=== PATIENT | female | born 1950 | race American Indian/Alaskan Native ===

== ENCOUNTER 2016-12-05 16:59 | Inpatient (IN) | payer MEDICARE, OTHER ==
[~2016-12-05] VITALS: Ht 170.2 cm; Wt 57.6 kg
[~2016-12-05 16:59] MED LIST: ASPIRIN81 MG ORAL; CLONIDINE1 EAC1 TD; MACROBID100 MG ORAL; NORCO 5-325 TA1 EACH ORAL; TYLENOL EXTRA500 MG ORAL
[2016-12-05 18:00] VITALS: BP 169/97
[2016-12-05 18:34] LABS: BASOPHILS % (AUTO) 3.8 % (0.0-2.0); EOSINOPHILS % (AUTO) 0.3 % (0.0-3.0); LYMPHOCYTES % (AUTO) 36.7 % (20.0-45.0); MEAN CORPUSCULAR HEMOGLOBIN 25.8 PG (27.0-31.0); MEAN CORPUSCULAR HGB CONC 31.2 G/DL (32.0-36.0); MEAN CORPUSCULAR VOLUME 83 FL (80-99); MEAN PLATELET VOLUME 7.6 FL (6.5-10.1); MONOCYTES % (AUTO) 10.5 % (1.0-10.0); NEUTROPHILS % (AUTO) 48.6 % (45.0-75.0); PLATELET COUNT 245 K/UL (150-450); RED BLOOD COUNT 5.81 M/UL (4.20-5.40); WHITE BLOOD COUNT 7.9 K/UL (4.8-10.8)
[2016-12-05] MEDS ORDERED: Miralax 17gm pkt ORAL PRN (18:45)
[2016-12-05 18:52] LABS: PROTHROMBIN TIME 10.2 SEC (9.30-11.50)
[2016-12-05 18:56] LABS: ALANINE AMINOTRANSFERASE 16 U/L (3-33); ANION GAP 13 (5-15); ASPARTATE AMINO TRANSFERASE 18 U/L (5-40); CALCIUM 9.4 mg/dL (8.6-10.2); CARBON DIOXIDE 29 mEQ/L (20-30); CHLORIDE 103 mEQ/L (98-107); CHOLESTEROL 166 mg/dL (< 200); CHOLESTEROL/HDL RATIO 2.7 (3.3-4.4); GLOMERULAR FILTRATION RATE > 60 mL/min (>60); HEMOLYSIS 3; LDL CHOLESTEROL CALC 77 mg/dL (60-99); POTASSIUM 3.8 mEQ/L (3.4-4.9); SODIUM 145 mEQ/L (135-145); TOTAL PROTEIN 7.1 g/dL (6.6-8.7); TROPONIN I < 0.30 ng/mL (<=0.30)
[2016-12-05 19:06] VITALS: BP 166/74
--- NOTE | 2016-12-05 19:44 | Emergency Room Report ---
History of Present Illness General Chief Complaint: General Complaint Source: Patient Present Illness HPI 66-year-old female presents ED complaining of slurred speech and left-sided weakness x2 days. Patient has history of hypertension and CVA. Patient did not come in sooner because she thought it would go away. Denies fevers or chills. Denies chest pain. Denies shortness of breath. Denies headache. No other aggravating or relieving factors. Denies any other associated symptoms Allergies: Coded Allergies: TRAMADOL (Unverified Allergy, Unknown, 08/25/14) Patient History Past Medical History: HTN, CVA/TIA, other - crohns Past Surgical History: none Pertinent Family History: none Social History: Denies: smoking, alcohol use, drug use Now: No Immunizations: UTD Reviewed Nursing Documentation: PMH: Agreed, PSxH: Agreed Nursing Documentation-PMH Hx Cardiac Problems: Yes Hx Hypertension: Yes Hx Cancer: Yes Hx Gastrointestinal Problems: Yes - CHRONS DISEASE Hx Neurological Problems: Yes Hx Cerebrovascular Accident: Yes Hx Dizziness: Yes Review of Systems All Other Systems: negative except mentioned in HPI Physical Exam Vital Signs Date Time Temp Pulse Resp B/P (MAP) Pulse Ox O2 Delivery O2 Flow Rate FiO2 12/05/16 17:06 97.9 88 16 169/97 99 Room Air Sp02 EP Interpretation: reviewed, normal General Appearance: no apparent distress, alert, GCS 15, non-toxic Head: normocephalic, atraumatic Eyes: bilateral eye normal inspection, bilateral eye PERRL ENT: hearing grossly normal, normal pharynx, no angioedema, normal voice Neck: full range of motion, supple/symm/no masses Respiratory: chest non-tender, lungs clear, normal breath sounds, speaking full sentences Cardiovascular #1: regular rate, rhythm, no edema Cardiovascular #2: 2+ carotid (R), 2+ carotid (L), 2+ radial (R), 2+ radial (L) , 2+ dorsalis pedis (R), 2+ dorsalis pedis (L) Gastrointestinal: normal bowel sounds, non tender, soft, non-distended, no guarding, no rebound Rectal: deferred Genitourinary: normal inspection, no CVA tenderness Musculoskeletal: back normal, gait/station normal, normal range of motion, non- tender Neurologic: alert, oriented x3, responsive, sensory intact, speech normal, facial droop, motor weakness, sensory deficit Psychiatric: judgement/insight normal, memory normal, mood/affect normal, no suicidal/homicidal ideation Reflexes: 3+ bicep (R), 3+ bicep (L), 3+ tricep (R), 3+ tricep (L), 3+ knee (R) , 3+ knee (L) Skin: normal color, no rash, warm/dry, well hydrated Lymphatic: no adenopathy Medical Decision Making Diagnostic Impression: Primary Impression: CVA (cerebral vascular accident) Qualified Codes: I63.9 - Cerebral infarction, unspecified ER Course Hospital Course 66-year-old female presents to ED complaining of left-sided body weakness, slurred speech x2 days Differential diagnoses include: [place]/unstable angina, SVT/Vtach/AFib, CVA/TIA Clinical course Patient placed on stretcher. 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 After initial history and physical I ordered labs, EKG, chest x-ray, and CT head labs reviewed- electrolytes ok, troponins negative, no leukocytosis, Hb/Hct stable EKG - NSR, no acute changes interpreted by me CT brain - no acute process noted Given aspirin in ED. patient symptoms started 2 days ago; not a candidate for thrombolytic therapy Case discussed with Dr. Aguilar and he agreed to accept the patient to his service for further care and support I. I feel this is a highly complex case requiring extensive working including EKG/Rhythm strip, Xray/CT/US, Blood/urine lab work, repeat exams while in ED, and administration of strong opiates/narcotics for pain control, admission to hospital or close patient follow up. Diagnosis - CVA/TIA admitted to telemetry in serious condition Labs Test 12/05/16 18:00 12/05/16 18:17 White Blood Count 7.9 K/UL (4.8-10.8) Red Blood Count 5.81 M/UL (4.20-5.40) Hemoglobin 15.0 G/DL (12.0-16.0) Hematocrit 48.0 % (37.0-47.0) Mean Corpuscular Volume 83 FL (80-99) Mean Corpuscular Hemoglobin 25.8 PG (27.0-31.0) Mean Corpuscular Hemoglobin Concent 31.2 G/DL (32.0-36.0) Red Cell Distribution Width 14.0 % (11.6-14.8) Platelet Count 245 K/UL (150-450) Mean Platelet Volume 7.6 FL (6.5-10.1) Neutrophils (%) (Auto) 48.6 % (45.0-75.0) Lymphocytes (%) (Auto) 36.7 % (20.0-45.0) Monocytes (%) (Auto) 10.5 % (1.0-10.0) Eosinophils (%) (Auto) 0.3 % (0.0-3.0) Basophils (%) (Auto) 3.8 % (0.0-2.0) Prothrombin Time 10.2 SEC (9.30-11.50) Prothromb Time International Ratio 1.0 (0.9-1.1) Activated Partial Thromboplast Time 25 SEC (23-33) Sodium Level 145 mEQ/L (135-145) Potassium Level 3.8 mEQ/L (3.4-4.9) Chloride Level 103 mEQ/L (98-107) Carbon Dioxide Level 29 mEQ/L (20-30) Anion Gap 13 (5-15) Blood Urea Nitrogen 20 mg/dL (7-23) Creatinine 1.0 mg/dL (0.5-0.9) Estimat Glomerular Filtration Rate > 60 mL/min (>60) Glucose Level 94 mg/dL (74-106) Calcium Level 9.4 mg/dL (8.6-10.2) Total Bilirubin 0.3 mg/dL (0.0-1.2) Aspartate Amino Transf (AST/SGOT) 18 U/L (5-40) Alanine Aminotransferase (ALT/SGPT) 16 U/L (3-33) Alkaline Phosphatase 123 U/L (35-104) Troponin I < 0.30 ng/mL (<=0.30) Total Protein 7.1 g/dL (6.6-8.7) Albumin 3.7 g/dL (3.5-5.2) Globulin 3.4 g/dL Albumin/Globulin Ratio 1.0 (1.0-2.7) Triglycerides Level 133 mg/dL (< 150) Cholesterol Level 166 mg/dL (< 200) LDL Cholesterol 77 mg/dL (60-99) HDL Cholesterol 62 mg/dL (> 60) Cholesterol/HDL Ratio 2.7 (3.3-4.4) EKG Diagnostic Results Rate: normal Rhythm: NSR ST Segments: no acute changes ASA given to the pt in ED: Yes Rhythm Strip Diag. Results EP Interpretation: yes Rhythm: NSR, no PVC's, no ectopy CT/MRI/US Diagnostic Results CT/MRI/US Diagnostic Results : Imaging Test Ordered: CT Head Impression no acute process. chronic infarcts noted Last Vital Signs Date Time Temp Pulse Resp B/P (MAP) Pulse Ox O2 Delivery O2 Flow Rate FiO2 12/05/16 19:06 25 25 166/74 98 Room Air 12/05/16 18:00 97.9 Status: improved Disposition: ADMITTED INPATIENT Condition: Serious Referrals: NOT CHOSEN KALPESH/,REFERRING (PCP) AMANDA REED M.D. Dec 05, 2016 19:44
[2016-12-05 21:00] VITALS: BP 158/76
[2016-12-05] MEDS ORDERED: Milk of Magnesia 30ml Ud ORAL PRN (21:00)
[2016-12-05 21:29] VITALS: BP 165/89
[2016-12-05 22:00] VITALS: BP 154/54
[2016-12-05] MEDS: Docusate 100mg cap ORAL SCH (22:16)
[2016-12-05] MEDS: D5 1/2NS 1,000 ML IV SCH (22:16)
[2016-12-05] MEDS: Heparin 5000 units/ml inj SUBQ SCH (22:18)
[2016-12-05] MEDS ORDERED: oxyCODONE HCL/Acetaminophen 5/325mg ORAL PRN (23:15)
[2016-12-06] VITALS (7 sets, daily range): BP systolic 134–176; BP diastolic 78–106
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
[2016-12-06 08:07] LABS: BASOPHILS % (AUTO) 2.7 % (0.0-2.0); EOSINOPHILS % (AUTO) 1.4 % (0.0-3.0); LYMPHOCYTES % (AUTO) 41.7 % (20.0-45.0); MEAN CORPUSCULAR HEMOGLOBIN 24.4 PG (27.0-31.0); MEAN CORPUSCULAR HGB CONC 29.9 G/DL (32.0-36.0); MEAN CORPUSCULAR VOLUME 82 FL (80-99); MEAN PLATELET VOLUME 8.8 FL (6.5-10.1); MONOCYTES % (AUTO) 18.1 % (1.0-10.0); NEUTROPHILS % (AUTO) 36.2 % (45.0-75.0); PLATELET COUNT 272 K/UL (150-450); RED BLOOD COUNT 5.82 M/UL (4.20-5.40); RED CELL DISTRIBUTION WIDTH 13.2 % (11.6-14.8); WHITE BLOOD COUNT 6.7 K/UL (4.8-10.8)
[2016-12-06 08:25] LABS: ANION GAP 12 (5-15); CALCIUM 8.8 mg/dL (8.6-10.2); CARBON DIOXIDE 26 mEQ/L (20-30); CHLORIDE 105 mEQ/L (98-107); CREATININE 0.9 mg/dL (0.5-0.9); GLOMERULAR FILTRATION RATE > 60 mL/min (>60); HEMOLYSIS 3; MAGNESIUM 1.8 mg/dL (1.7-2.5); SODIUM 143 mEQ/L (135-145)
[2016-12-06 08:32] LABS: THYROID STIMULATING HORMONE 0.827 uIU/mL (0.300-4.500)
--- NOTE | 2016-12-06 08:38 | Diagnostic Imaging Report ---
Indication: Altered mental status Technique: spiral acquisitions obtained through the brain. Angled axial and coronal 5 x 5 mm slices were reconstructed. No IV contrast utilized. Radiation dose was minimized using automated exposure control Total dose length product 1410 mGycm. CTDIvol(s) 70 mGy Comparison: none FINDINGS: No acute hemorrhage or edema. No mass effect or midline shift. There is age-related enlargement of the ventricles and extra axial CSF spaces. There is periventricular deep white matter ischemic change. Normal sterling-white differentiation. Visualized orbits are unremarkable. There is minimal ethmoid sinus disease on the right. The mastoids are clear. Intact calvarium. IMPRESSION: Chronic and age-related changes. Negative for acute intracranial bleed or mass effect This agrees with the preliminary interpretation provided overnight by [facility] teleradiology service. The CT scanner at [facility] is accredited by the [employer] and the scans are performed using protocols designed to limit radiation exposure to as low as reasonably achievable to attain images of sufficient resolution adequate for diagnostic evaluation
[2016-12-06] MEDS: Aspirin EC 325mg tab ORAL SCH (09:01)
[2016-12-06 09:02] LABS: HEMOGLOBIN A1C 5.3 % (< 6.0)
[2016-12-06] MEDS: Docusate 100mg cap ORAL SCH ×2 (09:03→21:03)
[2016-12-06] MEDS: Heparin 5000 units/ml inj SUBQ SCH ×2 (09:05→21:04)
[2016-12-06] MEDS: D5 1/2NS 1,000 ML IV SCH (10:06)
--- NOTE | 2016-12-06 10:06 | Diagnostic Imaging Report ---
Indication: Chest pain Technique: One view of the chest Comparison: 01/22/2014 Findings: Less optimal inspiration currently. There are atelectatic changes at the right lung base or increased from the prior exam. Left basilar linear opacities are similar, may reflect recurrent atelectatic changes or scarring. The lungs and pleural spaces are otherwise clear. The heart is upper limits of normal in size. There is tortuous and calcified. Impression: Bilateral basilar atelectasis and/or scarring. No acute process otherwise
--- NOTE | 2016-12-06 10:21 | Diagnostic Imaging Report ---
Indication: 66-year-old female patient with left-sided weakness and slurred speech Technique: sagittal T1 fast spin echo, axial T1 FLAIR, axial T2 FLAIR, axial T2 FS PROPELLER, axial T2* GRE, axial diffusion weighted images. ADC and exponential ADC maps generated Comparison: Brain CT earlier the same day Findings:Exam is limited due to significant motion artifact on several sequences. Patient was altered and unable hold still No abnormal areas of restricted diffusion to suggest acute infarction. No acute hemorrhage or edema. No mass effect nor midline shift. There is age-related enlargement of ventricles and extra-axial CSF spaces. There is an old lacunar infarct in the left basal ganglia. There is mild periventricular deep white matter chronic ischemic change noted. There is an old lacunar infarct in the right brachium pontis.. Visualized orbits and sinuses are unremarkable. The vascular flow voids are preserved. Impression: Mild chronic and age-related changes Negative for acute intracranial bleed, infarct, or mass effect
--- NOTE | 2016-12-06 11:34 | Neurology Progress Note ---
Objective Physical Exam Last Vital Signs Date Time Temp Pulse Resp B/P (MAP) Pulse Ox O2 Delivery O2 Flow Rate FiO2 12/06/16 09:04 169/99 12/06/16 08:00 98.1 68 20 94 Room Air Laboratory Tests Test 12/05/16 18:00 12/05/16 18:17 12/06/16 06:45 White Blood Count 7.9 K/UL (4.8-10.8) 6.7 K/UL (4.8-10.8) Red Blood Count 5.81 M/UL (4.20-5.40) H 5.82 M/UL (4.20-5.40) H Hemoglobin 15.0 G/DL (12.0-16.0) 14.2 G/DL (12.0-16.0) Hematocrit 48.0 % (37.0-47.0) H 47.6 % (37.0-47.0) H Mean Corpuscular Volume 83 FL (80-99) 82 FL (80-99) Mean Corpuscular Hemoglobin 25.8 PG (27.0-31.0) L 24.4 PG (27.0-31.0) L Mean Corpuscular Hemoglobin Concent 31.2 G/DL (32.0-36.0) L 29.9 G/DL (32.0-36.0) L Red Cell Distribution Width 14.0 % (11.6-14.8) 13.2 % (11.6-14.8) Platelet Count 245 K/UL (150-450) 272 K/UL (150-450) Mean Platelet Volume 7.6 FL (6.5-10.1) 8.8 FL (6.5-10.1) Neutrophils (%) (Auto) 48.6 % (45.0-75.0) 36.2 % (45.0-75.0) L Lymphocytes (%) (Auto) 36.7 % (20.0-45.0) 41.7 % (20.0-45.0) Monocytes (%) (Auto) 10.5 % (1.0-10.0) H 18.1 % (1.0-10.0) H Eosinophils (%) (Auto) 0.3 % (0.0-3.0) 1.4 % (0.0-3.0) Basophils (%) (Auto) 3.8 % (0.0-2.0) H 2.7 % (0.0-2.0) H Prothrombin Time 10.2 SEC (9.30-11.50) Prothromb Time International Ratio 1.0 (0.9-1.1) Activated Partial Thromboplast Time 25 SEC (23-33) Sodium Level 145 mEQ/L (135-145) 143 mEQ/L (135-145) Potassium Level 3.8 mEQ/L (3.4-4.9) 4.0 mEQ/L (3.4-4.9) Chloride Level 103 mEQ/L (98-107) 105 mEQ/L (98-107) Carbon Dioxide Level 29 mEQ/L (20-30) 26 mEQ/L (20-30) Anion Gap 13 (5-15) 12 (5-15) Blood Urea Nitrogen 20 mg/dL (7-23) 15 mg/dL (7-23) Creatinine 1.0 mg/dL (0.5-0.9) H 0.9 mg/dL (0.5-0.9) Estimat Glomerular Filtration Rate > 60 mL/min (>60) > 60 mL/min (>60) Glucose Level 94 mg/dL (74-106) 88 mg/dL (74-106) Calcium Level 9.4 mg/dL (8.6-10.2) 8.8 mg/dL (8.6-10.2) Total Bilirubin 0.3 mg/dL (0.0-1.2) Aspartate Amino Transf (AST/SGOT) 18 U/L (5-40) Alanine Aminotransferase (ALT/SGPT) 16 U/L (3-33) Alkaline Phosphatase 123 U/L (35-104) H Troponin I < 0.30 ng/mL (<=0.30) Total Protein 7.1 g/dL (6.6-8.7) Albumin 3.7 g/dL (3.5-5.2) Globulin 3.4 g/dL Albumin/Globulin Ratio 1.0 (1.0-2.7) Triglycerides Level 133 mg/dL (< 150) Cholesterol Level 166 mg/dL (< 200) LDL Cholesterol 77 mg/dL (60-99) HDL Cholesterol 62 mg/dL (> 60) H Cholesterol/HDL Ratio 2.7 (3.3-4.4) L Hemoglobin A1c 5.3 % (< 6.0) Magnesium Level 1.8 mg/dL (1.7-2.5) Vitamin B12 Level 367 pg/mL (211-946) Vitamin D 25-Hydroxy Pending 25-Hydroxy Vitamin D2 Pending 25-Hydroxy Vitamin D3 Pending Folate Pending Thyroid Stimulating Hormone (TSH) 0.827 uIU/mL (0.300-4.500) Impression/Recommendations Problems: (1) left radial nerve pulsy,wrist drop (2) old lacunar strokes Status: stable Recommendations #[id number] SHABBIR MOORE Dec 06, 2016 11:34
--- NOTE | 2016-12-06 12:52 | Cardiology Report ---
APPROVED REPORT EKG Measurement Heart [id number] Normal sinus rhythm Possible Left atrial enlargement Left ventricular hypertrophy Nonspecific T wave abnormality Abnormal ECG
--- NOTE | 2016-12-06 13:25 | Cardiology Report ---
APPROVED REPORT EXAM: Two-dimensional and M-mode echocardiogram with Doppler and color Doppler. INDICATION CVA/TIA M-Mode DIMENSIONS IVSd1.8 (0.7-1.1cm)Left Atrium (MM)3.1 (1.6-4.0cm) LVDd4.0 (3.5-5.6cm)Aortic Root3.7 (2.0-3.7cm) PWd1.9 (0.7-1.1cm)Aortic Cusp Exc.2.0 (1.5-2.0cm) LVDs3.5 (2.5-4.0cm) PWs1.9 cm Normal left ventricular chamber size. Mild global left ventricular hypokinesis. Left ventricular ejection fraction estimated to be 40-45 %. Mild left ventricular hypertrophy by 2-D. Anterior Echo-free space, may be due to pericardial fat or effusion. All other cardiac chamber sizes are within normal limits. Focal aortic valve sclerosis with adequate cusp excursion. Thickened mitral valve leaflets with normal excursion. Mitral annulus and aortic root calcification. Pulmonic valve not well visualized. Normal tricuspid valve structure. IVC at normal size with physiologic collapse. A color flow and spectral Doppler study was performed and revealed: Trace to mild mitral regurgitation. Mitral diastolic velocities suggest reduced left ventricular relaxation c/w mild LV diastolic dysfunction (Grade I). Mild tricuspid regurgitation. Tricuspid systolic velocities suggests peak right ventricular systolic pressure of 42 mmHg, consistent with mild pulmonary hypertension.
[2016-12-06] MEDS ORDERED: D5 1/2NS 1000ml IV ONE (14:30)
[2016-12-06] MEDS ORDERED: HYDROmorphone 1mg/ml Carpuject IVP PRN (15:15)
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
[2016-12-07 03:57] VITALS: BP 137/80
[2016-12-07 08:00] VITALS: BP 167/101
[2016-12-07] MEDS: Docusate 100mg cap ORAL SCH ×2 (08:53→22:00)
[2016-12-07] MEDS: Aspirin EC 325mg tab ORAL SCH (08:54)
[2016-12-07] MEDS: Heparin 5000 units/ml inj SUBQ SCH ×2 (08:57→22:02)
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
[2016-12-07 12:00] VITALS: BP 115/74
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
--- NOTE | 2016-12-07 14:15 | Cardiac Electrophysiology PN ---
Subjective Subjective [id number] Objective Last 24 Hour Vital Signs Date Time Temp Pulse Resp B/P (MAP) Pulse Ox O2 Delivery O2 Flow Rate FiO2 12/07/16 12:00 97.2 60 21 115/74 97 Room Air 12/07/16 08:58 167/101 12/07/16 08:54 72 167/101 12/07/16 08:00 97.8 72 20 167/101 97 Room Air 12/07/16 08:00 82 12/07/16 04:00 88 12/07/16 03:57 98.5 79 17 137/80 99 Room Air 12/07/16 00:00 74 12/06/16 23:53 98.8 78 18 145/80 95 Room Air 12/06/16 20:07 98.3 97 19 134/89 98 Room Air 12/06/16 20:00 88 12/06/16 16:03 152/103 12/06/16 16:00 77 12/06/16 16:00 97.3 69 22 158/93 97 Room Air EDWIGE DELONG Dec 07, 2016 14:15
[2016-12-07 16:00] VITALS: BP 107/58
[2016-12-07 20:00] VITALS: BP 136/72
--- NOTE | 2016-12-07 20:24 | General Progress Note ---
Assessment/Plan Problem List: (1) Bradycardia ICD Codes: R00.1 - Bradycardia, unspecified SNOMED: 48432229 (2) H/O: CVA (cerebrovascular accident) ICD Codes: Z86.73 - Personal history of transient ischemic attack (TIA), and cerebral infarction without residual deficits SNOMED: 372165675 (3) Dysarthria ICD Codes: R47.1 - Dysarthria and anarthria SNOMED: 6671619 (4) HTN (hypertension) ICD Codes: I10 - Essential (primary) hypertension SNOMED: 80382200 (5) Left hand weakness ICD Codes: R29.898 - Other symptoms and signs involving the musculoskeletal system SNOMED: 713767165 Status: stable Assessment/Plan Neurology consulted CT head reviewed and no acute abnormality F/u MRI brain--no acute abnormality F/u TTE--normal EF F/u carotid duplex Cardiology consulted given bradycardia Amlodipine 5mg BID Hold clonidine PT/OT/ST eval Pain control, supportive care, bowel regimen CM consulted for SNF placement DVT Prophylaxis: SCD, HSQ Code Status: Full Hospital Classification Declaration: Based on this initial evaluation, and depending on the patient's clinical course, I anticipate that this patient will require hospitalization for 1-2 days for possible CVA and close respiratory/ hemodynamic monitoring. Disposition: Once the patient is stable to leave the hospital, I anticipate the patient will likely be discharged to the following environment: home with vs SNF I spent 40 minutes on this patient's case, and 22 minutes were dedicated to counseling and/or care coordination. Discussed with patient/family, nursing staff, SW/CM, neurology regarding clinical status, treatment course, and disposition planning. Time of note may not reflect time of encounter. Subjective Date patient seen: Dec 07, 2016 Time patient seen: 14:00 Constitutional: Reports: no symptoms HEENT: Reports: no symptoms Cardiovascular: Reports: no symptoms Respiratory: Reports: no symptoms Gastrointestinal/Abdominal: Reports: no symptoms Genitourinary: Reports: no symptoms Neurologic/Psychiatric: Reports: weakness Endocrine: Reports: no symptoms Hematologic/Lymphatic: Reports: no symptoms Allergies: Coded Allergies: IBUPROFEN (Verified Allergy, Unknown, 12/05/16) TRAMADOL (Unverified Allergy, Unknown, 08/25/14) All Systems: reviewed and negative except above Subjective HR dropped to 30s while asleep. Pt otherwise asymptomatic BPs still running high Pt cont to be more awake, alert. C/o L hand weakness. X-rays neg. Working w/ PT/ OT Objective Last 24 Hour Vital Signs Date Time Temp Pulse Resp B/P (MAP) Pulse Ox O2 Delivery O2 Flow Rate FiO2 12/07/16 16:00 67 12/07/16 16:00 97.9 68 21 107/58 95 Room Air 12/07/16 12:00 41 12/07/16 12:00 97.2 60 21 115/74 97 Room Air 12/07/16 08:58 167/101 12/07/16 08:54 72 167/101 12/07/16 08:00 97.8 72 20 167/101 97 Room Air 12/07/16 08:00 82 12/07/16 04:00 88 12/07/16 03:57 98.5 79 17 137/80 99 Room Air 12/07/16 00:00 74 12/06/16 23:53 98.8 78 18 145/80 95 Room Air Intake and Output 12/07/16 12/08/16 19:00 07:00 Intake Total 500 ml Balance 500 ml Intake Oral 500 ml # Voids 1 Height (Feet): 5 Height (Inches): 7.00 Weight (Pounds): 127 Objective General Appearance: no apparent distress, alert, GCS 15, non-toxic Head: normocephalic, atraumatic Eyes: bilateral eye normal inspection, bilateral eye PERRL ENT: hearing grossly normal, normal pharynx, no angioedema, normal voice Neck: full range of motion, supple/symm/no masses Respiratory: chest non-tender, lungs clear, normal breath sounds, speaking full sentences Cardiovascular #1: regular rate, rhythm, no edema Cardiovascular #2: 2+ carotid (R), 2+ carotid (L), 2+ radial (R), 2+ radial (L) , 2+ dorsalis pedis (R), 2+ dorsalis pedis (L) Gastrointestinal: normal bowel sounds, non tender, soft, non-distended, no guarding, no rebound Rectal: deferred Genitourinary: normal inspection, no CVA tenderness Musculoskeletal: back normal, gait/station normal, normal range of motion, non- tender Neurologic: alert, oriented x3, responsive, sensory intact, speech normal, facial droop, motor weakness, sensory deficit - pt does not participate fully with neuro exam so difficult to assess extent of weakness Psychiatric: judgement/insight normal, memory normal, mood/affect normal, no suicidal/homicidal ideation Reflexes: 3+ bicep (R), 3+ bicep (L), 3+ tricep (R), 3+ tricep (L), 3+ knee (R) , 3+ knee (L) Skin: normal color, no rash, warm/dry, well hydrated Lymphatic: no adenopathy General Appearance: no apparent distress, alert, GCS 15, non-toxic Head: normocephalic, atraumatic Eyes: bilateral eye normal inspection, bilateral eye PERRL ENT: hearing grossly normal, normal pharynx, no angioedema, normal voice Neck: full range of motion, supple/symm/no masses Respiratory: chest non-tender, lungs clear, normal breath sounds, speaking full sentences Cardiovascular #1: regular rate, rhythm, no edema Cardiovascular #2: 2+ carotid (R), 2+ carotid (L), 2+ radial (R), 2+ radial (L) , 2+ dorsalis pedis (R), 2+ dorsalis pedis (L) Gastrointestinal: normal bowel sounds, non tender, soft, non-distended, no guarding, no rebound Rectal: deferred Genitourinary: normal inspection, no CVA tenderness Musculoskeletal: back normal, gait/station normal, normal range of motion, non- tender Neurologic: alert, oriented x3, responsive, sensory intact, speech normal, facial droop, motor weakness, sensory deficit - pt does not participate fully with neuro exam so difficult to assess extent of weakness Psychiatric: judgement/insight normal, memory normal, mood/affect normal, no suicidal/homicidal ideation Reflexes: 3+ bicep (R), 3+ bicep (L), 3+ tricep (R), 3+ tricep (L), 3+ knee (R) , 3+ knee (L) Skin: normal color, no rash, warm/dry, well hydrated Lymphatic: no adenopathy Aldair Kamara M.D. Dec 07, 2016 20:24
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
[2016-12-08] VITALS: BP 102/56
[2016-12-08 04:00] VITALS: BP 120/80
[2016-12-08] MEDS ORDERED: LISINOPRIL10 MG ORAL (07:44)
[2016-12-08] MEDS ORDERED: COLACE100 MG ORAL (07:44)
[2016-12-08] MEDS ORDERED: NORVASC5 MG ORAL (07:44)
--- NOTE | 2016-12-08 07:45 | Discharge Instructions ---
Discharge Instructions Discharge Instructions Follow up with: Primary care physician in 1-2 weeks. Repeat BMP in 2-3 days Call MD/Return to Hospital if: fevers, chills, chest pain, SOB> Diet: cardiac 2 GM Na, low fat Resume Normal Activity?: Yes Activity: resume normal activities For Congestive Heart Failure Reminder Report to your physician any weight gain of 5 pounds or more in one week. Aldair Kamara M.D. Dec 08, 2016 07:45
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
[2016-12-08 08:14] VITALS: BP 140/88
[2016-12-08] MEDS ORDERED: Vitamin B12 1000mcg/ml Inj IM ONE (09:00)
[2016-12-08] MEDS ORDERED: Lisinopril 10mg tab ORAL SCH (09:00)
[2016-12-08] MEDS: Aspirin EC 325mg tab ORAL SCH (10:15)
[2016-12-08] MEDS: Docusate 100mg cap ORAL SCH (10:16)
[2016-12-08] MEDS: Heparin 5000 units/ml inj SUBQ SCH (10:17)
[2016-12-08 10:19] VITALS: BP 140/88
[2016-12-08] MEDS ORDERED: D5 1/2NS 1000ml IV ONE (12:36)
--- NOTE | 2016-12-09 11:52 | Discharge Summary ---
Discharge Summary Hospital Course Date of Admission Dec 05, 2016 at 17:41 Date of Discharge Dec 08, 2016 at 12:37 Admitting Diagnosis CVA HPI Mia Cornejo is a 66 year old female who was admitted on Dec 05, 2016 at 17: 41 for Cerebrovascular Accident Discharge Discharge Disposition Patient was discharged to SNF/Subacute Facility(03) Discharge Diagnoses: Discharge Instructions Discharge Instructions Follow up with: Primary care physician in 1-2 weeks. Repeat BMP in 2-3 days Call MD/Return to Hospital if: fevers, chills, chest pain, SOB> Activity: resume normal activities Aldair Kamara M.D. Dec 09, 2016 11:52
[2016-12-10 15:09] LABS: VITAMIN D 25-OH TOTAL 25 ng/mL (.)
--- NOTE | 2016-12-21 09:27 | Diagnostic Imaging Report ---
Indication: Dysphasia Procedure and findings: Real-time fluoroscopic imaging performed in a lateral projection in conjunction with the speech pathologist evaluation. Variable consistencies of barium given per mouth. Findings: Significant abnormalities of both oral and pharyngeal phases of swallowing are demonstrated. Total fluoroscopic time 184 seconds. Trace laryngeal penetration demonstrated. No aspiration demonstrated. Abnormal video swallow. Please refer to speech pathology evaluation for more information.
== END 2016-12-08 12:37 | DRG 74 ==
LOC: EMR 17:35 → 2E 17:41 → EDBEDREQ 18:55
DX: G54.0 Brachial plexus disorders (principal); E46 Unspecified protein-calorie malnutrition; G81.94 Hemiplegia, unspecified affecting left nondominant side; F11.20 Opioid dependence, uncomplicated; Z68.1 Body mass index [BMI] 19.9 or less, adult; I10 Essential (primary) hypertension; R47.1 Dysarthria and anarthria; F32.9 Major depressive disorder, single episode, unspecified; M54.5 Low back pain; G56.32 Lesion of radial nerve, left upper limb; E11.9 Type 2 diabetes mellitus without complications; R00.1 Bradycardia, unspecified; Z86.73 Personal history of transient ischemic attack (TIA), and cerebral infarction without residual deficits
CPT/HCPCS: 36415; 70450; 70551; 71010; 72110; 73521; 74230; 80048; 80053; 80061; 82306; 82607; 82746; 82962; 83036; 83735; 84443; 84484; 85025; 85610; 85730; 87081; 93005; 93306; 93880; 99285

== ENCOUNTER 2017-04-01 13:44 | Emergency (ER) | payer MEDICARE, OTHER ==
[~2017-04-01] VITALS: Ht 162.6 cm; Wt 54.4 kg
[~2017-04-01 13:44] MED LIST changes: +COLACE100 MG ORAL; +LISINOPRIL10 MG ORAL; +NORVASC5 MG ORAL
[2017-04-01] MEDS ORDERED: TAMIFLU75 MG ORAL (14:08)
[2017-04-01] MEDS ORDERED: TYLENOL EXTRA500 MG ORAL (14:08)
[2017-04-01 14:16] VITALS: BP 160/93
--- NOTE | 2017-04-01 15:31 | Emergency Room Report ---
History of Present Illness General Chief Complaint: Flu Like Symptoms Source: Patient Present Illness HPI 67-year-old female presents ED complaining of bodyaches and chills x2 days. Notes productive cough. Afebrile in triage. Denies sore throat or earache. Did not receive flu vaccination this year. Denies sick contacts recent travel. No other aggravating relieving factors. Denies any other associated Allergies: Coded Allergies: IBUPROFEN (Verified Allergy, Unknown, 12/05/16) TRAMADOL (Unverified Allergy, Unknown, 08/25/14) Patient History Past Medical History: HTN, CVA/TIA, other - crohns Now: No Immunizations: UTD Reviewed Nursing Documentation: PMH: Agreed, PSxH: Agreed Nursing Documentation-PMH Hx Cardiac Problems: Yes Hx Hypertension: Yes Hx Cancer: Yes Hx Gastrointestinal Problems: Yes - CHRONS DISEASE Hx Neurological Problems: Yes Hx Cerebrovascular Accident: Yes - Stroke x2 in 2017 Hx Dizziness: Yes Review of Systems All Other Systems: negative except mentioned in HPI Physical Exam Vital Signs Date Time Temp Pulse Resp B/P (MAP) Pulse Ox O2 Delivery O2 Flow Rate FiO2 04/01/17 13:48 98.4 86 20 160/93 99 Room Air Sp02 EP Interpretation: reviewed, normal General Appearance: no apparent distress, alert, GCS 15, non-toxic Head: normocephalic, atraumatic Eyes: bilateral eye normal inspection, bilateral eye PERRL ENT: hearing grossly normal, normal pharynx, no angioedema, normal voice Neck: full range of motion, supple/symm/no masses Respiratory: chest non-tender, lungs clear, normal breath sounds, speaking full sentences Cardiovascular #1: regular rate, rhythm, no edema Cardiovascular #2: 2+ carotid (R), 2+ carotid (L), 2+ radial (R), 2+ radial (L) , 2+ dorsalis pedis (R), 2+ dorsalis pedis (L) Gastrointestinal: normal bowel sounds, non tender, soft, non-distended, no guarding, no rebound Rectal: deferred Genitourinary: normal inspection, no CVA tenderness Musculoskeletal: back normal, gait/station normal, normal range of motion, non- tender Neurologic: alert, oriented x3, responsive, motor strength/tone normal, sensory intact, speech normal Psychiatric: judgement/insight normal, memory normal, mood/affect normal, no suicidal/homicidal ideation Reflexes: 3+ bicep (R), 3+ bicep (L), 3+ tricep (R), 3+ tricep (L), 3+ knee (R) , 3+ knee (L) Skin: normal color, no rash, warm/dry, well hydrated Lymphatic: no adenopathy Medical Decision Making Diagnostic Impression: Primary Impression: Influenza-like symptoms ER Course Hospital Course 67-year-old female presents to ED complaining of cough, bodyaches and fever x 2 days Differential diagnoses include: URI, pharyngitis, otitis media, asthma Clinical course Patient placed on stretcher. After initial history, physical exam reveals a young male in no acute distress. Bilateral TM unremarkable. No pharyngeal erythema. No tonsillar exudates. No lymphadenopathy. lungs clear. abdomen soft. Clinical presentation consistent with influenza. Given patient's age we will prescribe Tamiflu Diagnosis - influenza-like symptoms Stable and discharged home with prescriptions for Tamiflu, tylenol. Instructed to followup with PMD. Return to ED if symptoms recur or worsen Last Vital Signs Date Time Temp Pulse Resp B/P (MAP) Pulse Ox O2 Delivery O2 Flow Rate FiO2 04/01/17 14:16 98.4 86 20 160/93 99 Room Air Status: improved Disposition: HOME, SELF-CARE Condition: Stable Scripts Acetaminophen* (TYLENOL EXTRA STRENGTH*) 500 Mg Tablet 500 MG ORAL Q8H Y for Prn Headache/Temp > 101, #30 TAB 0 Refills Prov: AMANDA REED M.D. 04/01/17 Oseltamivir Phosphate (Tamiflu) 75 Mg Capsule 75 MG ORAL TWICE A DAY for 5 Days, CAP Prov: AMANDA REED M.D. 04/01/17 Referrals: NOT CHOSEN IPA/,REFERRING (PCP) Patient Instructions: Influenza, Adult, [id number] AMANDA REED M.D. Apr 01, 2017 15:31
== END 2017-04-01 14:15 | disposition home or self-care (01) ==
LOC: EMR 14:03
DX: J11.1 Influenza due to unidentified influenza virus with other respiratory manifestations (principal); I10 Essential (primary) hypertension; K50.90 Crohn's disease, unspecified, without complications; Z86.73 Personal history of transient ischemic attack (TIA), and cerebral infarction without residual deficits; Z88.6 Allergy status to analgesic agent
CPT/HCPCS: 99283

== ENCOUNTER 2017-05-30 00:58 | Inpatient (IN) | payer MEDICARE, OTHER ==
[~2017-05-30] VITALS: Ht 170.2 cm; Wt 59.9 kg
[~2017-05-30 00:58] MED LIST changes: +TAMIFLU75 MG ORAL
[2017-05-30 04:03] VITALS: BP 147/89
[2017-05-30] MEDS ORDERED: PROMETHAZI6.25 MG/1 ORAL (04:22)
[2017-05-30] MEDS ORDERED: LORATADINE10 M1 PO (04:22)
[2017-05-30 08:00] VITALS: BP 140/89
[2017-05-30] MEDS ORDERED: Acetaminophen 500mg (ES) tab ORAL PRN (08:15)
[2017-05-30 09:27] LABS: BASOPHILS % (AUTO) 0.8 % (0.0-2.0); EOSINOPHILS % (AUTO) 0.8 % (0.0-3.0); HEMATOCRIT 39.1 % (37.0-47.0); HEMOGLOBIN 12.3 G/DL (12.0-16.0); LYMPHOCYTES % (AUTO) 34.8 % (20.0-45.0); MEAN CORPUSCULAR VOLUME 78 FL (80-99); MONOCYTES % (AUTO) 4.7 % (1.0-10.0); NEUTROPHILS % (AUTO) 58.8 % (45.0-75.0); PLATELET COUNT 540 K/UL (150-450); RED BLOOD COUNT 5.04 M/UL (4.20-5.40); RED CELL DISTRIBUTION WIDTH 13.5 % (11.6-14.8); WHITE BLOOD COUNT 8.8 K/UL (4.8-10.8)
[2017-05-30 09:46] LABS: ALANINE AMINOTRANSFERASE 23 U/L (12-78); ALBUMIN 2.3 G/DL (3.4-5.0); ALBUMIN/GLOBULIN RATIO 0.4 (1.0-2.7); ALKALINE PHOSPHATASE 100 U/L (46-116); ANION GAP 5 mmol/L (5-15); ASPARTATE AMINO TRANSFERASE 18 U/L (15-37); BILIRUBIN,TOTAL 0.2 MG/DL (0.2-1.0); BLOOD UREA NITROGEN 17 mg/dL (7-18); CARBON DIOXIDE 30 MMOL/L (21-32); CHLORIDE 103 MMOL/L (98-107); CREATININE 1.2 MG/DL (0.55-1.30); PHOSPHORUS 4.9 MG/DL (2.5-4.9); POTASSIUM 4.5 MMOL/L (3.5-5.1); SODIUM 138 MMOL/L (136-145)
[2017-05-30 09:47] LABS: INR 0.9 (0.9-1.1)
--- NOTE | 2017-05-30 10:45 | Pre-Procedure Note/Attestation ---
Pre-Procedure Note/Attestation Complete Prior to Procedure Planned Procedure: right Procedure Narrative: Fluoro or US guided hip aspiration Indications for Procedure Pre-Operative Diagnosis: Hip pain R Attestation I attest that I discussed the nature of the procedure; its benefits; risks and complications; and alternatives (and the risks and benefits of such alternatives ), prior to the procedure, with the patient (or the patient's legal screening representative). I attest that, if there was a reasonable possibility of needing a blood transfusion, the patient (or the patient's legal screening representative) was given the [facility] standardized written summary, pursuant to the [place] Blood Safety Act ([place] Health and Safety Code # 1645, as amended). I attest that I re-evaluated the patient just prior to the surgery and that there has been no change in the patient's H&P, except as documented below: AYANA PATTEN M.D. May 30, 2017 10:44
[2017-05-30] MEDS ORDERED: Vancomycin 1250mg/D5W 250ml IVPB ONE (11:00)
[2017-05-30] MEDS: Docusate 100mg cap ORAL SCH ×2 (11:11→17:46)
[2017-05-30] MEDS: Aspirin Baby 81mg ORAL SCH (11:12)
[2017-05-30] MEDS: Lisinopril 10mg tab ORAL SCH (11:12)
[2017-05-30] MEDS: Heparin 5000 units/ml inj SUBQ SCH ×2 (11:17→20:46)
[2017-05-30] MEDS: Promethazine Plain 6.25mg/5ml ORAL PRN ×2 (11:31→17:46)
[2017-05-30] MEDS: cefTRIAXone 1 GM in NS 55 ML IVPB SCH (11:31)
[2017-05-30 12:00] VITALS: BP 138/76
--- NOTE | 2017-05-30 12:11 | Diagnostic Imaging Report ---
Indication: Cough Technique: 2 views of the chest Comparison: 12/05/2016 Findings: There are bilateral basilar linear and reticular opacities. These may represent atelectasis or linear infiltrates. However, similarity to findings on the previous study indicate these may also represent chronic fibrotic changes. The remainder the lungs are clear. The pleural spaces are clear. The heart size is normal. There is bilateral infrahilar bronchial wall thickening and possible mild bronchiectasis Impression: Bilateral basilar linear and reticular opacities, may reflect atelectasis, infiltrate, chronic fibrotic changes, or combination of the above Evidence of chronic bronchitis and possible lower lobe bronchiectasis
[2017-05-30 16:00] VITALS: BP 145/79
--- NOTE | 2017-05-30 17:59 | History & Physical ---
History and Physical History & Physicial Dictated for Int Med-Dr Staton no. [id number]. CARYN SANCHEZ May 30, 2017 17:59
[2017-05-30 20:22] VITALS: BP 138/84
--- NOTE | 2017-05-30 22:11 | Consultation ---
History of Present Illness Present Illness Allergies: Coded Allergies: IBUPROFEN (Verified Allergy, Unknown, 12/05/16) TRAMADOL (Unverified Allergy, Unknown, 08/25/14) Medication History Scheduled Amlodipine Besylate (Norvasc), 5 MG ORAL Q12HR Aspirin* (Aspirin*), 81 MG ORAL DAILY, (Reported) Docusate Sodium* (Colace*), 100 MG ORAL EVERY 12 HOURS Lisinopril* (Lisinopril*), 10 MG ORAL DAILY Loratadine (Loratadine), 10 MG PO DAILY, (Reported) Oseltamivir Phosphate (Tamiflu), 75 MG ORAL TWICE A DAY Promethazine Hcl (Promethazine Hcl*), 5 ML ORAL Q6H, (Reported) Scheduled PRN Acetaminophen* (Tylenol Extra Strength*), 500 MG ORAL Q8H PRN for Prn Headache/ Temp > 101 Hydrocodone Bit/Acetaminophen 5-325* ([place] 5-325*), 1 TAB ORAL Q6H PRN for For Pain, (Reported) Patient History Healthcare decision maker Resuscitation status Full Code Advanced Directive on File No Physical Exam Last 24 Hour Vital Signs Date Time Temp Pulse Resp B/P (MAP) Pulse Ox O2 Delivery O2 Flow Rate FiO2 05/30/17 20:46 99 138/84 05/30/17 20:22 99.1 99 21 138/84 92 99.1 05/30/17 16:00 97.2 99 20 145/79 93 97.2 05/30/17 12:00 97.4 81 20 138/76 96 Room Air 97.4 05/30/17 11:12 140/89 05/30/17 11:12 80 140/89 05/30/17 08:00 97.7 80 20 140/89 97 Room Air 97.7 05/30/17 04:03 97.5 85 18 147/89 91 Room Air 97.5 Laboratory Tests Test 05/30/17 08:40 White Blood Count 8.8 K/UL (4.8-10.8) Red Blood Count 5.04 M/UL (4.20-5.40) Hemoglobin 12.3 G/DL (12.0-16.0) Hematocrit 39.1 % (37.0-47.0) Mean Corpuscular Volume 78 FL (80-99) L Mean Corpuscular Hemoglobin 24.5 PG (27.0-31.0) L Mean Corpuscular Hemoglobin Concent 31.5 G/DL (32.0-36.0) L Red Cell Distribution Width 13.5 % (11.6-14.8) Platelet Count 540 K/UL (150-450) H Mean Platelet Volume 6.1 FL (6.5-10.1) L Neutrophils (%) (Auto) 58.8 % (45.0-75.0) Lymphocytes (%) (Auto) 34.8 % (20.0-45.0) Monocytes (%) (Auto) 4.7 % (1.0-10.0) Eosinophils (%) (Auto) 0.8 % (0.0-3.0) Basophils (%) (Auto) 0.8 % (0.0-2.0) Erythrocyte Sedimentation Rate 71 MM/HR (0-30) H Prothrombin Time 9.9 SEC (9.30-11.50) Prothromb Time International Ratio 0.9 (0.9-1.1) Activated Partial Thromboplast Time 27 SEC (23-33) Sodium Level 138 MMOL/L (136-145) Potassium Level 4.5 MMOL/L (3.5-5.1) Chloride Level 103 MMOL/L (98-107) Carbon Dioxide Level 30 MMOL/L (21-32) Anion Gap 5 mmol/L (5-15) Blood Urea Nitrogen 17 mg/dL (7-18) Creatinine 1.2 MG/DL (0.55-1.30) Estimat Glomerular Filtration Rate 54.7 mL/min (>60) Glucose Level 101 MG/DL (74-106) Calcium Level 9.0 MG/DL (8.5-10.1) Phosphorus Level 4.9 MG/DL (2.5-4.9) Magnesium Level 2.2 MG/DL (1.8-2.4) Total Bilirubin 0.2 MG/DL (0.2-1.0) Aspartate Amino Transf (AST/SGOT) 18 U/L (15-37) Alanine Aminotransferase (ALT/SGPT) 23 U/L (12-78) Alkaline Phosphatase 100 U/L (46-116) Total Protein 7.7 G/DL (6.4-8.2) Albumin 2.3 G/DL (3.4-5.0) L Globulin 5.4 g/dL Albumin/Globulin Ratio 0.4 (1.0-2.7) L Height (Feet): 5 Height (Inches): 7.00 Weight (Pounds): 132 Medications Current Medications Medications (Trade) Dose Ordered Sig/Adolfo Route PRN Reason Start Time Stop Time Status Last Admin Dose Admin Acetaminophen (Tylenol) 500 mg Q8HR PRN ORAL Mild Pain/Temp > 100.5 05/30/17 08:15 06/29/17 08:14 Acetaminophen/ Hydrocodone Bitart ([place] 5/325) 1 tab Q6H PRN ORAL Severe Pain (Pain Scale 7-10) 05/30/17 08:15 06/06/17 08:14 Amlodipine Besylate (Norvasc) 5 mg Q12HR ORAL 05/30/17 09:00 06/29/17 08:59 05/30/17 20:46 Aspirin (ASA) 81 mg DAILY ORAL 05/30/17 09:00 06/29/17 08:59 05/30/17 11:12 Ceftriaxone Sodium 1 gm/ Sodium Chloride 55 ml @ 110 mls/hr Q24H IVPB 05/30/17 10:00 06/06/17 09:59 05/30/17 11:31 Docusate Sodium (Colace) 100 mg TWICE A DAY ORAL 05/30/17 09:00 06/29/17 08:59 05/30/17 17:46 Heparin Sodium (Porcine) (Heparin 5000 units/ml) 5,000 units EVERY 12 HOURS SUBQ 05/30/17 09:00 06/29/17 08:59 05/30/17 20:46 Lisinopril (Zestril) 10 mg DAILY ORAL 05/30/17 09:00 06/29/17 08:59 05/30/17 11:12 Promethazine HCl (Phenergan [place]) 6.25 mg Q6H PRN ORAL For Cough 05/30/17 08:15 06/29/17 08:14 05/30/17 17:46 Vancomycin HCl (Vanco rx to dose) 1 ea DAILY PRN MISC Per rx protocol 05/30/17 08:30 06/29/17 08:29 Vancomycin/Sodium Chloride 250 ml @ 166.667 mls/hr Q12HR@1100,2300 IVPB 05/30/17 23:00 06/04/17 22:59 Assessment/Plan Problem List: (1) COPD (chronic obstructive pulmonary disease) ICD Codes: J44.9 - Chronic obstructive pulmonary disease, unspecified SNOMED: 35268239 (2) old lacunar strokes (3) Right hip pain ICD Codes: M25.551 - Pain in right hip SNOMED: 80406444 (4) Cocaine abuse ICD Codes: F14.10 - Cocaine abuse, uncomplicated SNOMED: 31080211 (5) HTN (hypertension) ICD Codes: I10 - Essential (primary) hypertension SNOMED: 54497063 (6) H/O: CVA (cerebrovascular accident) ICD Codes: Z86.73 - Personal history of transient ischemic attack (TIA), and cerebral infarction without residual deficits SNOMED: 875066917 Assessment/Plan symptomtic treatment respiratory treatment neurology evaluaion titrate fio2 to sat of 92% dvt prophylaxis. Marley Cam MD May 30, 2017 22:11
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
[2017-05-30] MEDS: Norco 5mg/325mg tab ORAL PRN (22:59)
[2017-05-30] MEDS: Vancomycin 750mg/NS 250ml IVPB SCH (23:02)
[2017-05-31 00:12] VITALS: BP 130/74
[2017-05-31 00:55] LABS: APPEARANCE,URINE CLEAR; BILIRUBIN, URINE NEGATIVE (NEGATIVE); GLUCOSE, URINE (UA) NEGATIVE (NEGATIVE); KETONES,URINE NEGATIVE (NEGATIVE); LEUKOCYTE ESTERASE ,URINE NEGATIVE (NEGATIVE); NITRITE,URINE NEGATIVE (NEGATIVE); PH,URINE 8 (4.5-8.0); PROTEIN,URINE NEGATIVE (NEGATIVE); UROBILINOGEN,URINE 4 MG/DL (0.0-1.0)
[2017-05-31 00:58] LABS: COLOR,URINE YELLOW
[2017-05-31 04:23] VITALS: BP 130/74
[2017-05-31 06:37] LABS: EOSINOPHILS % (AUTO) 1.1 % (0.0-3.0); HEMATOCRIT 37.6 % (37.0-47.0); LYMPHOCYTES % (AUTO) 48.9 % (20.0-45.0); MEAN CORPUSCULAR VOLUME 77 FL (80-99); MONOCYTES % (AUTO) 7.3 % (1.0-10.0); NEUTROPHILS % (AUTO) 41.7 % (45.0-75.0); PLATELET COUNT 521 K/UL (150-450); RED BLOOD COUNT 4.86 M/UL (4.20-5.40); RED CELL DISTRIBUTION WIDTH 13.1 % (11.6-14.8); WHITE BLOOD COUNT 7.7 K/UL (4.8-10.8)
[2017-05-31 07:01] LABS: ANION GAP 9 mmol/L (5-15); BLOOD UREA NITROGEN 16 mg/dL (7-18); CALCIUM 8.6 MG/DL (8.5-10.1); CARBON DIOXIDE 26 MMOL/L (21-32); CHLORIDE 102 MMOL/L (98-107); POTASSIUM 4.1 MMOL/L (3.5-5.1); SODIUM 137 MMOL/L (136-145)
[2017-05-31 08:00] VITALS: BP 130/80
[2017-05-31] MEDS: Docusate 100mg cap ORAL SCH ×2 (08:45→18:49)
[2017-05-31] MEDS: Aspirin Baby 81mg ORAL SCH (08:45)
[2017-05-31] MEDS: Lisinopril 10mg tab ORAL SCH (08:46)
[2017-05-31] MEDS: Heparin 5000 units/ml inj SUBQ SCH ×2 (08:48→20:58)
[2017-05-31] MEDS: cefTRIAXone 1 GM in NS 55 ML IVPB SCH (09:55)
--- NOTE | 2017-05-31 10:37 | Diagnostic Imaging Report ---
Indication: Right hip pain, suspected septic arthritis Technique: Informed consent obtained prior to commencement of the procedure. Procedure timeout performed. Sterile prepping and draping of the right groin. Local anesthesia with 1% lidocaine. Under fluoroscopy guidance, a 22-gauge spinal needle was directed to the superolateral femoral head neck junction. The needle was aspirated, yielding approximate 5 mL of yellow synovial fluid. This was sent to the lab for analysis. A small amount of contrast was injected, confirming intra-articular needle placement. The patient tolerated the procedure well, without immediate complication. Total fluoroscopy time 0.8 minutes. Total dose area product 17 dGycm2 Comparison: none Findings: As above Impression: Successful right hip aspiration, yielding approximately 5 mL of yellow synovial fluid which was sent to the lab
[2017-05-31 12:00] VITALS: BP 140/91
[2017-05-31] MEDS: Vancomycin 750mg/NS 250ml IVPB SCH ×2 (12:06→22:36)
[2017-05-31 16:00] VITALS: BP 144/79
--- NOTE | 2017-05-31 16:21 | Pulmonology Progress Note ---
Assessment/Plan Problems: (1) Right hip pain (2) COPD (chronic obstructive pulmonary disease) (3) old lacunar strokes (4) H/O: CVA (cerebrovascular accident) (5) HTN (hypertension) (6) Cocaine abuse Assessment/Plan arthrocentesis ID evaluaiton respiratory treatment pt/ot Ortho evaluation Subjective ROS Limited/Unobtainable: No Interval Events: still c/o pain Allergies: Coded Allergies: IBUPROFEN (Verified Allergy, Unknown, 12/05/16) TRAMADOL (Unverified Allergy, Unknown, 08/25/14) Objective Last 24 Hour Vital Signs Date Time Temp Pulse Resp B/P (MAP) Pulse Ox O2 Delivery O2 Flow Rate FiO2 05/31/17 16:00 97.7 69 18 144/79 94 97.7 05/31/17 12:00 98.4 78 20 140/91 94 98.4 05/31/17 08:46 132/70 05/31/17 08:46 82 132/81 05/31/17 08:00 97.8 77 19 130/80 93 97.8 05/31/17 04:23 97.0 89 20 130/74 91 97.0 05/31/17 04:23 91 Room Air 05/31/17 00:15 91 Room Air 05/31/17 00:12 97.0 89 20 130/74 91 97.0 05/30/17 23:58 97.0 05/30/17 22:59 99.1 05/30/17 20:46 99 138/84 05/30/17 20:22 92 Room Air 05/30/17 20:22 99.1 99 21 138/84 92 99.1 Intake and Output 05/30/17 05/31/17 19:00 07:00 Intake Total 90 ml 250.000 ml Output Total 250 ml Balance -160 ml 250.000 ml Intake Oral 90 ml IV Total 250.000 ml Output Urine Total 250 ml # Voids 2 Objective General Appearance: WD/WN HEENT: normocephalic, atraumatic Respiratory/Chest: chest wall non-tender, lungs clear, no accessory muscle use Cardiovascular: normal rate, regular rhythm Abdomen: normal bowel sounds, no mass Genitourinary: normal external genitalia Extremities: no cyanosis Skin: no lesions 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 Lymphatic: no neck adenopathy Microbiology Date/Time Source Procedure Growth Status 05/30/17 10:20 Body Fluid Abscess Gram Stain - Final Resulted 05/30/17 10:20 Body Fluid Abscess Body Fluid Culture - Preliminary NO GROWTH Resulted Laboratory Tests 05/30/17 23:18: Urine Color Yellow, Urine Appearance Clear, Urine pH 8, Urine Specific [place] 1.010, Urine Protein Negative, Urine Glucose (UA) Negative, Urine Ketones Negative, Urine Occult Blood Negative, Urine Nitrite Negative, Urine Bilirubin Negative, Urine Urobilinogen 4H, Urine Leukocyte Esterase Negative, Urine RBC 0- 2, Urine WBC 0, Urine Squamous Epithelial Cells Few, Urine Bacteria None 05/31/17 05:20: White Blood Count 7.7, Red Blood Count 4.86, Hemoglobin 12.0, Hematocrit 37.6, Mean Corpuscular Volume 77L, Mean Corpuscular Hemoglobin 24.7L, Mean Corpuscular Hemoglobin Concent 31.8L, Red Cell Distribution Width 13.1, Platelet Count 521H, Mean Platelet Volume 5.7L, Neutrophils (%) (Auto) 41.7L, Lymphocytes (%) (Auto) 48.9H, Monocytes (%) (Auto) 7.3, Eosinophils (%) (Auto) 1.1, Basophils (%) (Auto) 1.0, Sodium Level 137, Potassium Level 4.1, Chloride Level 102, Carbon Dioxide Level 26, Anion Gap 9, Blood Urea Nitrogen 16, Creatinine 1.0, Estimat Glomerular Filtration Rate > 60, Glucose Level 88, Calcium Level 8.6, C-Reactive Protein, Quantitative 12.6H Current Medications Medications (Trade) Dose Ordered Sig/Adolfo Route PRN Reason Start Time Stop Time Status Last Admin Dose Admin Acetaminophen (Tylenol) 500 mg Q8HR PRN ORAL Mild Pain/Temp > 100.5 05/30/17 08:15 06/29/17 08:14 Acetaminophen/ Hydrocodone Bitart ([place] 5/325) 1 tab Q6H PRN ORAL Severe Pain (Pain Scale 7-10) 05/30/17 08:15 06/06/17 08:14 05/30/17 22:59 Amlodipine Besylate (Norvasc) 5 mg Q12HR ORAL 05/30/17 09:00 06/29/17 08:59 05/31/17 08:46 Aspirin (ASA) 81 mg DAILY ORAL 05/30/17 09:00 06/29/17 08:59 05/31/17 08:45 Ceftriaxone Sodium 1 gm/ Sodium Chloride 55 ml @ 110 mls/hr Q24H IVPB 05/30/17 10:00 06/06/17 09:59 05/31/17 09:55 Docusate Sodium (Colace) 100 mg TWICE A DAY ORAL 05/30/17 09:00 06/29/17 08:59 05/31/17 08:45 Heparin Sodium (Porcine) (Heparin 5000 units/ml) 5,000 units EVERY 12 HOURS SUBQ 05/30/17 09:00 06/29/17 08:59 05/31/17 08:48 Lisinopril (Zestril) 10 mg DAILY ORAL 05/30/17 09:00 06/29/17 08:59 05/31/17 08:46 Promethazine HCl (Phenergan Plain) 6.25 mg Q6H PRN ORAL For Cough 05/30/17 08:15 06/29/17 08:14 05/30/17 17:46 Vancomycin HCl (Vanco rx to dose) 1 ea DAILY PRN MISC Per rx protocol 05/30/17 08:30 06/29/17 08:29 Vancomycin/Sodium Chloride 250 ml @ 166.667 mls/hr Q12HR@1100,2300 IVPB 05/30/17 23:00 06/04/17 22:59 05/31/17 12:06 Marley Cam MD May 31, 2017 16:21
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
--- NOTE | 2017-05-31 17:13 | Internal Med Progress Note ---
Subjective Date of Service: May 31, 2017 Physician Name Caryn Sanchez Attending Physician Kenneth Staton MD Current Medications Medications (Trade) Dose Ordered Sig/Adolfo Route PRN Reason Start Time Stop Time Status Last Admin Dose Admin Acetaminophen (Tylenol) 500 mg Q8HR PRN ORAL Mild Pain/Temp > 100.5 05/30/17 08:15 06/29/17 08:14 Acetaminophen/ Hydrocodone Bitart ([place] 5/325) 1 tab Q6H PRN ORAL Severe Pain (Pain Scale 7-10) 05/30/17 08:15 06/06/17 08:14 05/30/17 22:59 Amlodipine Besylate (Norvasc) 5 mg Q12HR ORAL 05/30/17 09:00 06/29/17 08:59 05/31/17 08:46 Aspirin (ASA) 81 mg DAILY ORAL 05/30/17 09:00 06/29/17 08:59 05/31/17 08:45 Ceftriaxone Sodium 1 gm/ Sodium Chloride 55 ml @ 110 mls/hr Q24H IVPB 05/30/17 10:00 06/06/17 09:59 05/31/17 09:55 Docusate Sodium (Colace) 100 mg TWICE A DAY ORAL 05/30/17 09:00 06/29/17 08:59 05/31/17 08:45 Heparin Sodium (Porcine) (Heparin 5000 units/ml) 5,000 units EVERY 12 HOURS SUBQ 05/30/17 09:00 06/29/17 08:59 05/31/17 08:48 Lisinopril (Zestril) 10 mg DAILY ORAL 05/30/17 09:00 06/29/17 08:59 05/31/17 08:46 Promethazine HCl (Phenergan Plain) 6.25 mg Q6H PRN ORAL For Cough 05/30/17 08:15 06/29/17 08:14 05/30/17 17:46 Vancomycin HCl (Vanco rx to dose) 1 ea DAILY PRN MISC Per rx protocol 05/30/17 08:30 06/29/17 08:29 Vancomycin/Sodium Chloride 250 ml @ 166.667 mls/hr Q12HR@1100,2300 IVPB 05/30/17 23:00 06/04/17 22:59 05/31/17 12:06 Allergies: Coded Allergies: IBUPROFEN (Verified Allergy, Unknown, 12/05/16) TRAMADOL (Unverified Allergy, Unknown, 08/25/14) ROS Limited/Unobtainable: No Constitutional: Reports: no symptoms HEENT: Reports: no symptoms Cardiovascular: Reports: no symptoms Respiratory: Reports: no symptoms Gastrointestinal/Abdominal: Reports: no symptoms Genitourinary: Reports: no symptoms Neurologic/Psychiatric: Reports: no symptoms Subjective 67 YO F with right hip pain; await ortho consult. Cover for Int Daniel-Dr Staton Objective Last Vital Signs Date Time Temp Pulse Resp B/P (MAP) Pulse Ox O2 Delivery O2 Flow Rate FiO2 05/31/17 16:00 97.7 69 18 144/79 94 97.7 05/31/17 04:23 Room Air General Appearance: WD/WN, alert, mild distress EENT: PERRL/EOMI, normal ENT inspection, TMs normal Neck: non-tender, normal alignment, supple, normal inspection Cardiovascular: normal peripheral pulses, normal rate, regular rhythm, no gallop/murmur, no JVD Respiratory/Chest: chest wall non-tender, lungs clear, normal breath sounds, no respiratory distress, no accessory muscle use Abdomen: normal bowel sounds, non tender, soft, no organomegaly, no mass Extremities: normal range of motion, non-tender - right hip pain, 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, no motor/sensory deficits Skin: normal pigmentation, warm/dry Laboratory Tests Test 05/30/17 23:18 05/31/17 05:20 Urine Color Yellow Urine Appearance Clear Urine pH 8 (4.5-8.0) Urine Specific [place] 1.010 (1.005-1.035) Urine Protein Negative (NEGATIVE) Urine Glucose (UA) Negative (NEGATIVE) Urine Ketones Negative (NEGATIVE) Urine Occult Blood Negative (NEGATIVE) Urine Nitrite Negative (NEGATIVE) Urine Bilirubin Negative (NEGATIVE) Urine Urobilinogen 4 MG/DL (0.0-1.0) H Urine Leukocyte Esterase Negative (NEGATIVE) Urine RBC 0-2 /HPF (0 - 2) Urine WBC 0 /HPF (0 - 2) Urine Squamous Epithelial Cells Few /LPF (NONE/OCC) Urine Bacteria None /HPF (NONE) White Blood Count 7.7 K/UL (4.8-10.8) Red Blood Count 4.86 M/UL (4.20-5.40) Hemoglobin 12.0 G/DL (12.0-16.0) Hematocrit 37.6 % (37.0-47.0) Mean Corpuscular Volume 77 FL (80-99) L Mean Corpuscular Hemoglobin 24.7 PG (27.0-31.0) L Mean Corpuscular Hemoglobin Concent 31.8 G/DL (32.0-36.0) L Red Cell Distribution Width 13.1 % (11.6-14.8) Platelet Count 521 K/UL (150-450) H Mean Platelet Volume 5.7 FL (6.5-10.1) L Neutrophils (%) (Auto) 41.7 % (45.0-75.0) L Lymphocytes (%) (Auto) 48.9 % (20.0-45.0) H Monocytes (%) (Auto) 7.3 % (1.0-10.0) Eosinophils (%) (Auto) 1.1 % (0.0-3.0) Basophils (%) (Auto) 1.0 % (0.0-2.0) Sodium Level 137 MMOL/L (136-145) Potassium Level 4.1 MMOL/L (3.5-5.1) Chloride Level 102 MMOL/L (98-107) Carbon Dioxide Level 26 MMOL/L (21-32) Anion Gap 9 mmol/L (5-15) Blood Urea Nitrogen 16 mg/dL (7-18) Creatinine 1.0 MG/DL (0.55-1.30) Estimat Glomerular Filtration Rate > 60 mL/min (>60) Glucose Level 88 MG/DL (74-106) Calcium Level 8.6 MG/DL (8.5-10.1) C-Reactive Protein, Quantitative 12.6 mg/dL (0.00-0.90) H Microbiology Date/Time Source Procedure Growth Status 05/30/17 10:20 Body Fluid Abscess Gram Stain - Final Resulted 05/30/17 10:20 Body Fluid Abscess Body Fluid Culture - Preliminary NO GROWTH Resulted Intake and Output 05/30/17 05/31/17 19:00 07:00 Intake Total 90 ml 250.000 ml Output Total 250 ml Balance -160 ml 250.000 ml Intake Oral 90 ml IV Total 250.000 ml Output Urine Total 250 ml # Voids 2 Assessment/Plan Problem List: (1) HTN (hypertension) Assessment & Plan: Continue lisinopril (2) COPD (chronic obstructive pulmonary disease) (3) Right flank pain (4) Right hip pain Assessment & Plan: ?septic arthritis? Await cultures. Continue vanco and ceftriaxone per ID. Await ortho consult. CARYN SANCHEZ May 31, 2017 17:12
[2017-05-31] MEDS ORDERED: Milk of Magnesia 30ml Ud ORAL PRN (18:30)
[2017-05-31 20:00] VITALS: BP 112/57
[2017-05-31] MEDS: Norco 5mg/325mg tab ORAL PRN (20:57)
[2017-05-31] MEDS: Promethazine Plain 6.25mg/5ml ORAL PRN (22:00)
[2017-06-01] VITALS: BP 130/86
[2017-06-01 04:37] VITALS: BP 122/79
[2017-06-01 07:28] LABS: BASOPHILS % (AUTO) 0.5 % (0.0-2.0); EOSINOPHILS % (AUTO) 1.1 % (0.0-3.0); HEMATOCRIT 38.2 % (37.0-47.0); LYMPHOCYTES % (AUTO) 48.9 % (20.0-45.0); MEAN CORPUSCULAR VOLUME 78 FL (80-99); NEUTROPHILS % (AUTO) 43.5 % (45.0-75.0); PLATELET COUNT 514 K/UL (150-450); RED CELL DISTRIBUTION WIDTH 13.7 % (11.6-14.8); WHITE BLOOD COUNT 6.5 K/UL (4.8-10.8)
[2017-06-01 07:47] LABS: ANION GAP 8 mmol/L (5-15); BLOOD UREA NITROGEN 19 mg/dL (7-18); CALCIUM 8.6 MG/DL (8.5-10.1); CARBON DIOXIDE 27 MMOL/L (21-32); CHLORIDE 104 MMOL/L (98-107); POTASSIUM 3.9 MMOL/L (3.5-5.1); SODIUM 139 MMOL/L (136-145)
[2017-06-01 08:00] VITALS: BP 134/77
[2017-06-01] MEDS: Docusate 100mg cap ORAL SCH ×2 (09:57→18:26)
[2017-06-01] MEDS: Aspirin Baby 81mg ORAL SCH (09:57)
[2017-06-01] MEDS: Heparin 5000 units/ml inj SUBQ SCH ×2 (09:58→21:31)
[2017-06-01] MEDS: Lisinopril 10mg tab ORAL SCH (09:58)
[2017-06-01] MEDS: cefTRIAXone 1 GM in NS 55 ML IVPB SCH (09:59)
--- NOTE | 2017-06-01 09:59 | Diagnostic Imaging Report ---
Indication: Pain Technique: XRAY Pelvis 1v Comparison: Correlation made to pelvis and bilateral hip radiographs 12/06/2016. Findings: No evidence of acute fracture or dislocation. There is degenerative change of bilateral hips with joint space narrowing, subchondral sclerosis and cystic change. Symphysis pubis is intact. Degenerative changes of the lower lumbar spine partially visualized. There is a coarse calcification in the pelvis, possibly pelvic phleboliths or calcified small fibroid. Impression: No evidence of acute fracture or dislocation. Mild degenerative changes of the bilateral hips.
[2017-06-01] MEDS: Norco 5mg/325mg tab ORAL PRN ×2 (10:41→18:26)
[2017-06-01 12:00] VITALS: BP 105/60
[2017-06-01] MEDS: Vancomycin 750mg/NS 250ml IVPB SCH ×2 (12:29→22:38)
[2017-06-01] MEDS ORDERED: Tubing IV Secondary IV ONE (14:17)
--- NOTE | 2017-06-01 14:39 | Neurology Progress Note ---
Interim History Interim History ROS Limited/Unobtainable: No Review of Systems Neuro Review of Systems #[id number] Objective Physical Exam Last Vital Signs Date Time Temp Pulse Resp B/P (MAP) Pulse Ox O2 Delivery O2 Flow Rate FiO2 06/01/17 12:00 97.9 72 18 105/60 94 97.9 06/01/17 04:37 Room Air Laboratory Tests Test 06/01/17 00:15 06/01/17 06:05 06/01/17 10:14 Vancomycin Level Trough 23.1 ug/mL (5.0-12.0) H 12.1 ug/mL (5.0-12.0) H White Blood Count 6.5 K/UL (4.8-10.8) Red Blood Count 4.90 M/UL (4.20-5.40) Hemoglobin 12.0 G/DL (12.0-16.0) Hematocrit 38.2 % (37.0-47.0) Mean Corpuscular Volume 78 FL (80-99) L Mean Corpuscular Hemoglobin 24.5 PG (27.0-31.0) L Mean Corpuscular Hemoglobin Concent 31.4 G/DL (32.0-36.0) L Red Cell Distribution Width 13.7 % (11.6-14.8) Platelet Count 514 K/UL (150-450) H Mean Platelet Volume 6.2 FL (6.5-10.1) L Neutrophils (%) (Auto) 43.5 % (45.0-75.0) L Lymphocytes (%) (Auto) 48.9 % (20.0-45.0) H Monocytes (%) (Auto) 6.0 % (1.0-10.0) Eosinophils (%) (Auto) 1.1 % (0.0-3.0) Basophils (%) (Auto) 0.5 % (0.0-2.0) Sodium Level 139 MMOL/L (136-145) Potassium Level 3.9 MMOL/L (3.5-5.1) Chloride Level 104 MMOL/L (98-107) Carbon Dioxide Level 27 MMOL/L (21-32) Anion Gap 8 mmol/L (5-15) Blood Urea Nitrogen 19 mg/dL (7-18) H Creatinine 1.0 MG/DL (0.55-1.30) Estimat Glomerular Filtration Rate > 60 mL/min (>60) Glucose Level 116 MG/DL (74-106) H Calcium Level 8.6 MG/DL (8.5-10.1) SHABBIR MOORE Jun 01, 2017 14:39
[2017-06-01 15:46] VITALS: BP 138/94
--- NOTE | 2017-06-01 17:16 | Pulmonology Progress Note ---
Assessment/Plan Problems: (1) Pneumonia (2) COPD (chronic obstructive pulmonary disease) (3) Right hip pain (4) old lacunar strokes (5) Cocaine abuse (6) HTN (hypertension) (7) H/O: CVA (cerebrovascular accident) Assessment/Plan s/p right hip joint aspiration continue abx check cultures check sputum incentive spirometry antitussives. Subjective ROS Limited/Unobtainable: No Interval Events: still c/o right hip pain Allergies: Coded Allergies: IBUPROFEN (Verified Allergy, Unknown, 12/05/16) TRAMADOL (Unverified Allergy, Unknown, 08/25/14) Objective Last 24 Hour Vital Signs Date Time Temp Pulse Resp B/P (MAP) Pulse Ox O2 Delivery O2 Flow Rate FiO2 06/01/17 15:46 97.7 74 18 138/94 95 97.7 06/01/17 12:00 97.9 72 18 105/60 94 97.9 06/01/17 11:40 97.3 06/01/17 09:58 134/77 06/01/17 09:57 85 134/77 06/01/17 08:00 97.3 85 18 134/77 95 97.3 06/01/17 04:37 95 Room Air 06/01/17 04:37 97.4 90 19 122/79 95 Room Air 97.4 06/01/17 00:00 97.9 92 16 130/86 92 97.9 06/01/17 00:00 92 Room Air 05/31/17 20:57 97.0 05/31/17 20:57 58 112/57 05/31/17 20:00 95 Room Air 05/31/17 20:00 97.0 58 18 112/57 95 97.0 Intake and Output 05/31/17 06/01/17 19:00 07:00 Intake Total 1100 ml 250.000 ml Output Total 250 ml Balance 1100 ml 0 ml Intake Oral 1100 ml IV Total 250.000 ml Output Urine Total 250 ml # Voids 3 # Bowel Movements 1 Objective General Appearance: WD/WN HEENT: normocephalic, atraumatic Respiratory/Chest: chest wall non-tender, lungs clear, no accessory muscle use Cardiovascular: normal rate, regular rhythm Abdomen: normal bowel sounds, no mass Genitourinary: normal external genitalia Extremities: no cyanosis Skin: no lesions 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 Complete 05/30/17 23:18 Urine,Clean Catch Urine Culture - Preliminary NO GROWTH Resulted 05/30/17 05:00 Rectum VRE Culture - Final NO VANCOMYCIN RESISTANT ENTEROCOCCUS ... Complete Laboratory Tests 06/01/17 00:15: Vancomycin Level Trough 23.1H 06/01/17 06:05: White Blood Count 6.5, Red Blood Count 4.90, Hemoglobin 12.0, Hematocrit 38.2, Mean Corpuscular Volume 78L, Mean Corpuscular Hemoglobin 24.5L, Mean Corpuscular Hemoglobin Concent 31.4L, Red Cell Distribution Width 13.7, Platelet Count 514H, Mean Platelet Volume 6.2L, Neutrophils (%) (Auto) 43.5L, Lymphocytes (%) (Auto) 48.9H, Monocytes (%) (Auto) 6.0, Eosinophils (%) (Auto) 1.1, Basophils (%) (Auto) 0.5, Sodium Level 139, Potassium Level 3.9, Chloride Level 104, Carbon Dioxide Level 27, Anion Gap 8, Blood Urea Nitrogen 19H, Creatinine 1.0, Estimat Glomerular Filtration Rate > 60, Glucose Level 116H, Calcium Level 8.6 06/01/17 10:14: Vancomycin Level Trough 12.1H Current Medications Medications (Trade) Dose Ordered Sig/Adolfo Route PRN Reason Start Time Stop Time Status Last Admin Dose Admin Acetaminophen (Tylenol) 500 mg Q8HR PRN ORAL Mild Pain/Temp > 100.5 05/30/17 08:15 06/29/17 08:14 Acetaminophen/ Hydrocodone Bitart ([place] 5/325) 1 tab Q6H PRN ORAL Severe Pain (Pain Scale 7-10) 05/30/17 08:15 06/06/17 08:14 06/01/17 10:41 Amlodipine Besylate (Norvasc) 5 mg Q12HR ORAL 05/30/17 09:00 06/29/17 08:59 06/01/17 09:57 Aspirin (ASA) 81 mg DAILY ORAL 05/30/17 09:00 06/29/17 08:59 06/01/17 09:57 Ceftriaxone Sodium 1 gm/ Sodium Chloride 55 ml @ 110 mls/hr Q24H IVPB 05/30/17 10:00 06/06/17 09:59 06/01/17 09:59 Docusate Sodium (Colace) 100 mg TWICE A DAY ORAL 05/30/17 09:00 06/29/17 08:59 06/01/17 09:57 Heparin Sodium (Porcine) (Heparin 5000 units/ml) 5,000 units EVERY 12 HOURS SUBQ 05/30/17 09:00 06/29/17 08:59 06/01/17 09:58 Lisinopril (Zestril) 10 mg DAILY ORAL 05/30/17 09:00 06/29/17 08:59 06/01/17 09:58 Magnesium Hydroxide (Mom) 30 ml HSPRN PRN ORAL Constipation 05/31/17 18:30 06/30/17 18:29 Promethazine HCl (Phenergan Plain) 6.25 mg Q6H PRN ORAL For Cough 05/30/17 08:15 06/29/17 08:14 05/31/17 22:00 Vancomycin HCl (Vanco rx to dose) 1 ea DAILY PRN MISC Per rx protocol 05/30/17 08:30 06/29/17 08:29 Vancomycin/Sodium Chloride 250 ml @ 166.667 mls/hr Q12HR@1100,2300 IVPB 05/30/17 23:00 06/04/17 22:59 06/01/17 12:29 Marley Cam MD Jun 01, 2017 17:16
--- NOTE | 2017-06-01 17:26 | Internal Med Progress Note ---
Subjective Date of Service: Jun 01, 2017 Physician Name Caryn Sanchez Attending Physician Kenneth Staton MD Current Medications Medications (Trade) Dose Ordered Sig/Adolfo Route PRN Reason Start Time Stop Time Status Last Admin Dose Admin Acetaminophen (Tylenol) 500 mg Q8HR PRN ORAL Mild Pain/Temp > 100.5 05/30/17 08:15 06/29/17 08:14 Acetaminophen/ Hydrocodone Bitart ([place] 5/325) 1 tab Q6H PRN ORAL Severe Pain (Pain Scale 7-10) 05/30/17 08:15 06/06/17 08:14 06/01/17 10:41 Amlodipine Besylate (Norvasc) 5 mg Q12HR ORAL 05/30/17 09:00 06/29/17 08:59 06/01/17 09:57 Aspirin (ASA) 81 mg DAILY ORAL 05/30/17 09:00 06/29/17 08:59 06/01/17 09:57 Ceftriaxone Sodium 1 gm/ Sodium Chloride 55 ml @ 110 mls/hr Q24H IVPB 05/30/17 10:00 06/06/17 09:59 06/01/17 09:59 Docusate Sodium (Colace) 100 mg TWICE A DAY ORAL 05/30/17 09:00 06/29/17 08:59 06/01/17 09:57 Heparin Sodium (Porcine) (Heparin 5000 units/ml) 5,000 units EVERY 12 HOURS SUBQ 05/30/17 09:00 06/29/17 08:59 06/01/17 09:58 Lisinopril (Zestril) 10 mg DAILY ORAL 05/30/17 09:00 06/29/17 08:59 06/01/17 09:58 Magnesium Hydroxide (Mom) 30 ml HSPRN PRN ORAL Constipation 05/31/17 18:30 06/30/17 18:29 Promethazine HCl (Phenergan Plain) 6.25 mg Q6H PRN ORAL For Cough 05/30/17 08:15 06/29/17 08:14 05/31/17 22:00 Vancomycin HCl (Vanco rx to dose) 1 ea DAILY PRN MISC Per rx protocol 05/30/17 08:30 06/29/17 08:29 Vancomycin/Sodium Chloride 250 ml @ 166.667 mls/hr Q12HR@1100,2300 IVPB 05/30/17 23:00 06/04/17 22:59 06/01/17 12:29 Allergies: Coded Allergies: IBUPROFEN (Verified Allergy, Unknown, 12/05/16) TRAMADOL (Unverified Allergy, Unknown, 08/25/14) ROS Limited/Unobtainable: No Constitutional: Reports: no symptoms HEENT: Reports: no symptoms Cardiovascular: Reports: no symptoms Respiratory: Reports: no symptoms Gastrointestinal/Abdominal: Reports: no symptoms Genitourinary: Reports: no symptoms Neurologic/Psychiatric: Reports: no symptoms Subjective 67 YO F with right hip pain; await ortho consult. Cover for Int Daniel-Dr Staton Objective Last Vital Signs Date Time Temp Pulse Resp B/P (MAP) Pulse Ox O2 Delivery O2 Flow Rate FiO2 06/01/17 15:46 97.7 74 18 138/94 95 97.7 06/01/17 04:37 Room Air Laboratory Tests Test 06/01/17 00:15 06/01/17 06:05 06/01/17 10:14 Vancomycin Level Trough 23.1 ug/mL (5.0-12.0) H 12.1 ug/mL (5.0-12.0) H White Blood Count 6.5 K/UL (4.8-10.8) Red Blood Count 4.90 M/UL (4.20-5.40) Hemoglobin 12.0 G/DL (12.0-16.0) Hematocrit 38.2 % (37.0-47.0) Mean Corpuscular Volume 78 FL (80-99) L Mean Corpuscular Hemoglobin 24.5 PG (27.0-31.0) L Mean Corpuscular Hemoglobin Concent 31.4 G/DL (32.0-36.0) L Red Cell Distribution Width 13.7 % (11.6-14.8) Platelet Count 514 K/UL (150-450) H Mean Platelet Volume 6.2 FL (6.5-10.1) L Neutrophils (%) (Auto) 43.5 % (45.0-75.0) L Lymphocytes (%) (Auto) 48.9 % (20.0-45.0) H Monocytes (%) (Auto) 6.0 % (1.0-10.0) Eosinophils (%) (Auto) 1.1 % (0.0-3.0) Basophils (%) (Auto) 0.5 % (0.0-2.0) Sodium Level 139 MMOL/L (136-145) Potassium Level 3.9 MMOL/L (3.5-5.1) Chloride Level 104 MMOL/L (98-107) Carbon Dioxide Level 27 MMOL/L (21-32) Anion Gap 8 mmol/L (5-15) Blood Urea Nitrogen 19 mg/dL (7-18) H Creatinine 1.0 MG/DL (0.55-1.30) Estimat Glomerular Filtration Rate > 60 mL/min (>60) Glucose Level 116 MG/DL (74-106) H Calcium Level 8.6 MG/DL (8.5-10.1) Microbiology Date/Time Source Procedure Growth Status 05/30/17 10:20 Body Fluid Abscess Gram Stain - Final Resulted 05/30/17 10:20 Body Fluid Abscess Body Fluid Culture - Preliminary NO GROWTH AFTER 48 HOURS Resulted 05/30/17 05:00 Nasal Nares Left MRSA Culture - Final NO METHICILLIN RESISTANT STAPH AUREUS... Complete 05/30/17 23:18 Urine,Clean Catch Urine Culture - Preliminary NO GROWTH Resulted 05/30/17 05:00 Rectum VRE Culture - Final NO VANCOMYCIN RESISTANT ENTEROCOCCUS ... Complete Intake and Output 05/31/17 06/01/17 19:00 07:00 Intake Total 1100 ml 250.000 ml Output Total 250 ml Balance 1100 ml 0 ml Intake Oral 1100 ml IV Total 250.000 ml Output Urine Total 250 ml # Voids 3 # Bowel Movements 1 Objective General Appearance: WD/WN, alert, mild distress EENT: PERRL/EOMI, normal ENT inspection, TMs normal Neck: non-tender, normal alignment, supple, normal inspection Cardiovascular: normal peripheral pulses, normal rate, regular rhythm, no gallop/murmur, no JVD Respiratory/Chest: chest wall non-tender, lungs clear, normal breath sounds, no respiratory distress, no accessory muscle use Abdomen: normal bowel sounds, non tender, soft, no organomegaly, no mass Extremities: normal range of motion, non-tender - right hip pain, other Neurologic: wholesale representative II-XII grossly normal, no motor/sensory deficits Skin: normal pigmentation, warm/dry Assessment/Plan Problem List: (1) HTN (hypertension) Assessment & Plan: Continue lisinopril (2) COPD (chronic obstructive pulmonary disease) (3) Right flank pain (4) Right hip pain Assessment & Plan: ?septic arthritis? Await cultures. Continue vanco and ceftriaxone per ID. Await ortho consult. CARYN SANCHEZ Jun 01, 2017 17:26
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
[2017-06-01 20:00] VITALS: BP 147/87
--- NOTE | 2017-06-01 20:30 | Progress Note ---
DATE: 05/31/2017 SUBJECTIVE: The patient still has right hip pain. She had no issues overnight. PHYSICAL EXAMINATION: GENERAL: The patient is alert and oriented. She is resting comfortably at this time in bed. EXTREMITIES: Right hip examination shows some pain along the right anterior groin area. Negative heel strike. Minimal pain to external rotation. DIAGNOSTIC DATA: The patient had an ultrasound of the right hip with 5 mL of the synovial fluid was aspirated and was sent off for further analysis. Results are still pending. ASSESSMENT AND PLAN: We will continue IV antibiotics. Continue to monitor from a clinical point of view. Fredo Anderson M.D. DR: Salina JOB#: [id number] CC:
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
--- NOTE | 2017-06-01 23:30 | Progress Note ---
DATE: 06/01/2017 HISTORY OF PRESENT ILLNESS: The patient had hip aspiration yesterday. She still has continued anterior hip pain. No issues overnight. PHYSICAL EXAMINATION: GENERAL: The patient is alert and oriented. She is resting comfortably at this time in bed. EXTREMITIES: Right hip examination shows range of motion is 0 to 90, about 25 degrees of internal rotation and external 25. Negative heel strike. Posterior calf is soft. LABORATORY DATA: cultures are unremarkable of the right hip. ASSESSMENT: Nonspecific right hip pain, possible lumbar radiculopathy versus possible cancer. DISCUSSION: Her imaging studies did not show advanced arthritis. The aspiration showed only 5 mL of synovial like fluid, which did not show any obvious growth for 48 hours. The patient reports to me that she was seen at [facility] previously, was diagnosed with some type of cancer that needed workup, for which she did not follow through with the followup. She also reports that she was seen by some type of hospice care assistant regarding this issue with possible metastatic cancer. The patient has not had any type workup and I wonder if some of this pain could be related to that. At this point, I am going to contact Dr. Jacobson and let him know some of my concerns and see if the additional workup needs to be done. She also has a history of chronic low back pain secondary stenosis. Clearly, she is not a candidate for any type of intervention. Does not explain her focused right hip issues. However, she was already recommended to have surgery for the back, which she declined. Clearly, her social situation complicates any type of surgical intervention. In terms of her social point of view, she is homeless. She needs a addiction social worker to figure out how to better manage her living situation. Fredo Anderson M.D. DR: Salina JOB#: [id number] CC: LITO
[2017-06-02] VITALS: BP 138/82
[2017-06-02] MEDS: Norco 5mg/325mg tab ORAL PRN ×2 (01:48→19:23)
[2017-06-02] MEDS: Promethazine Plain 6.25mg/5ml ORAL PRN ×2 (01:48→19:23)
[2017-06-02 04:00] VITALS: BP 135/87
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
[2017-06-02 07:44] LABS: ANION GAP 6 mmol/L (5-15); BASOPHILS % (AUTO) 0.3 % (0.0-2.0); BLOOD UREA NITROGEN 22 mg/dL (7-18); CALCIUM 8.9 MG/DL (8.5-10.1); CARBON DIOXIDE 27 MMOL/L (21-32); CHLORIDE 105 MMOL/L (98-107); CREATININE 1.1 MG/DL (0.55-1.30); HEMOGLOBIN 11.4 G/DL (12.0-16.0); LYMPHOCYTES % (AUTO) 51.8 % (20.0-45.0); MEAN CORPUSCULAR VOLUME 78 FL (80-99); MONOCYTES % (AUTO) 5.3 % (1.0-10.0); NEUTROPHILS % (AUTO) 41.5 % (45.0-75.0); PLATELET COUNT 489 K/UL (150-450); POTASSIUM 4.3 MMOL/L (3.5-5.1); RED BLOOD COUNT 4.61 M/UL (4.20-5.40); RED CELL DISTRIBUTION WIDTH 13.9 % (11.6-14.8); SODIUM 138 MMOL/L (136-145); WHITE BLOOD COUNT 7.6 K/UL (4.8-10.8)
[2017-06-02 08:00] VITALS: BP 136/70
[2017-06-02] MEDS: Docusate 100mg cap ORAL SCH ×2 (09:06→16:55)
[2017-06-02] MEDS: Aspirin Baby 81mg ORAL SCH (09:06)
[2017-06-02] MEDS: cefTRIAXone 1 GM in NS 55 ML IVPB SCH (09:07)
[2017-06-02] MEDS: Lisinopril 10mg tab ORAL SCH (09:08)
[2017-06-02] MEDS: Heparin 5000 units/ml inj SUBQ SCH ×2 (09:09→20:57)
[2017-06-02] MEDS: Vancomycin 750mg/NS 250ml IVPB SCH ×2 (10:30→22:31)
[2017-06-02 12:00] VITALS: BP 134/75
--- NOTE | 2017-06-02 15:14 | Internal Med Progress Note ---
Subjective Date of Service: Jun 02, 2017 Physician Name Caryn Sanchez Attending Physician Kenneth Staton MD Current Medications Medications (Trade) Dose Ordered Sig/Adolfo Route PRN Reason Start Time Stop Time Status Last Admin Dose Admin Acetaminophen (Tylenol) 500 mg Q8HR PRN ORAL Mild Pain/Temp > 100.5 05/30/17 08:15 06/29/17 08:14 Acetaminophen/ Hydrocodone Bitart ([place] 5/325) 1 tab Q6H PRN ORAL Severe Pain (Pain Scale 7-10) 05/30/17 08:15 06/06/17 08:14 06/02/17 01:48 Amlodipine Besylate (Norvasc) 5 mg Q12HR ORAL 05/30/17 09:00 06/29/17 08:59 06/02/17 09:08 Aspirin (ASA) 81 mg DAILY ORAL 05/30/17 09:00 06/29/17 08:59 06/02/17 09:06 Ceftriaxone Sodium 1 gm/ Sodium Chloride 55 ml @ 110 mls/hr Q24H IVPB 05/30/17 10:00 06/06/17 09:59 06/02/17 09:07 Docusate Sodium (Colace) 100 mg TWICE A DAY ORAL 05/30/17 09:00 06/29/17 08:59 06/02/17 09:06 Heparin Sodium (Porcine) (Heparin 5000 units/ml) 5,000 units EVERY 12 HOURS SUBQ 05/30/17 09:00 06/29/17 08:59 06/02/17 09:09 Lisinopril (Zestril) 10 mg DAILY ORAL 05/30/17 09:00 06/29/17 08:59 06/02/17 09:08 Magnesium Hydroxide (Mom) 30 ml HSPRN PRN ORAL Constipation 05/31/17 18:30 06/30/17 18:29 Nicotine (Nicoderm) 1 patch Q24H TDERMAL 06/02/17 09:00 07/02/17 08:59 Promethazine HCl (Phenergan Plain) 6.25 mg Q6H PRN ORAL For Cough 05/30/17 08:15 06/29/17 08:14 06/02/17 01:48 Vancomycin HCl (Vanco rx to dose) 1 ea DAILY PRN MISC Per rx protocol 05/30/17 08:30 06/29/17 08:29 Vancomycin/Sodium Chloride 250 ml @ 166.667 mls/hr Q12HR@1100,2300 IVPB 05/30/17 23:00 06/04/17 22:59 06/02/17 10:30 Allergies: Coded Allergies: IBUPROFEN (Verified Allergy, Unknown, 12/05/16) TRAMADOL (Unverified Allergy, Unknown, 08/25/14) ROS Limited/Unobtainable: No Constitutional: Reports: no symptoms HEENT: Reports: no symptoms Cardiovascular: Reports: no symptoms Respiratory: Reports: no symptoms Gastrointestinal/Abdominal: Reports: no symptoms Genitourinary: Reports: no symptoms Neurologic/Psychiatric: Reports: no symptoms Subjective 67 YO F with right hip pain; await ortho consult. Cover for Int Daniel-Dr Staton Objective Last Vital Signs Date Time Temp Pulse Resp B/P (MAP) Pulse Ox O2 Delivery O2 Flow Rate FiO2 06/02/17 12:00 97.7 85 19 134/75 100 97.7 06/02/17 05:51 Room Air Laboratory Tests Test 06/02/17 05:45 White Blood Count 7.6 K/UL (4.8-10.8) Red Blood Count 4.61 M/UL (4.20-5.40) Hemoglobin 11.4 G/DL (12.0-16.0) L Hematocrit 36.0 % (37.0-47.0) L Mean Corpuscular Volume 78 FL (80-99) L Mean Corpuscular Hemoglobin 24.6 PG (27.0-31.0) L Mean Corpuscular Hemoglobin Concent 31.5 G/DL (32.0-36.0) L Red Cell Distribution Width 13.9 % (11.6-14.8) Platelet Count 489 K/UL (150-450) H Mean Platelet Volume 6.0 FL (6.5-10.1) L Neutrophils (%) (Auto) 41.5 % (45.0-75.0) L Lymphocytes (%) (Auto) 51.8 % (20.0-45.0) H Monocytes (%) (Auto) 5.3 % (1.0-10.0) Eosinophils (%) (Auto) 1.0 % (0.0-3.0) Basophils (%) (Auto) 0.3 % (0.0-2.0) Sodium Level 138 MMOL/L (136-145) Potassium Level 4.3 MMOL/L (3.5-5.1) Chloride Level 105 MMOL/L (98-107) Carbon Dioxide Level 27 MMOL/L (21-32) Anion Gap 6 mmol/L (5-15) Blood Urea Nitrogen 22 mg/dL (7-18) H Creatinine 1.1 MG/DL (0.55-1.30) Estimat Glomerular Filtration Rate > 60 mL/min (>60) Glucose Level 73 MG/DL (74-106) L Calcium Level 8.9 MG/DL (8.5-10.1) Microbiology Date/Time Source Procedure Growth Status 05/30/17 23:18 Urine,Clean Catch Urine Culture - Preliminary NO GROWTH AFTER 24 HOURS Resulted Intake and Output 06/01/17 06/02/17 19:00 07:00 Intake Total 480 ml 750.000 ml Balance 480 ml 750.000 ml Intake Oral 480 ml 500 ml IV Total 250.000 ml # Voids 3 3 Objective General Appearance: WD/WN, alert, mild distress EENT: PERRL/EOMI, normal ENT inspection, TMs normal Neck: non-tender, normal alignment, supple, normal inspection Cardiovascular: normal peripheral pulses, normal rate, regular rhythm, no gallop/murmur, no JVD Respiratory/Chest: chest wall non-tender, lungs clear, normal breath sounds, no respiratory distress, no accessory muscle use Abdomen: normal bowel sounds, non tender, soft, no organomegaly, no mass Extremities: normal range of motion, non-tender - right hip pain, other Neurologic: acupuncture physician II-XII grossly normal, no motor/sensory deficits Skin: normal pigmentation, warm/dry Assessment/Plan Problem List: (1) HTN (hypertension) Assessment & Plan: Continue lisinopril (2) COPD (chronic obstructive pulmonary disease) (3) Right flank pain (4) Right hip pain Assessment & Plan: ?septic arthritis? Await cultures. Continue vanco and ceftriaxone per ID. See ortho consult. CARYN SANCHEZ Jun 02, 2017 15:14
[2017-06-02 16:00] VITALS: BP 126/67
[2017-06-02 20:21] VITALS: BP 111/74
--- NOTE | 2017-06-02 22:18 | Pulmonology Progress Note ---
Assessment/Plan Problems: (1) Pneumonia (2) COPD (chronic obstructive pulmonary disease) (3) Right hip pain (4) old lacunar strokes (5) Cocaine abuse (6) HTN (hypertension) (7) H/O: CVA (cerebrovascular accident) Assessment/Plan s/p right hip joint aspiration continue abx check cultures check sputum incentive spirometry antitussives. cultures pending Subjective ROS Limited/Unobtainable: No Allergies: Coded Allergies: IBUPROFEN (Verified Allergy, Unknown, 12/05/16) TRAMADOL (Unverified Allergy, Unknown, 08/25/14) Objective Last 24 Hour Vital Signs Date Time Temp Pulse Resp B/P (MAP) Pulse Ox O2 Delivery O2 Flow Rate FiO2 06/02/17 20:54 89 111/74 06/02/17 20:22 98.1 06/02/17 20:21 98.1 89 19 111/74 95 Room Air 98.1 06/02/17 19:23 97.2 06/02/17 16:00 97.2 74 19 126/67 93 97.2 06/02/17 12:00 97.7 85 19 134/75 100 97.7 06/02/17 09:08 136/70 06/02/17 09:08 75 136/70 06/02/17 08:00 98.2 75 19 136/70 100 98.2 06/02/17 05:51 Room Air 06/02/17 04:00 98.0 90 17 135/87 93 98.0 06/02/17 01:48 97.7 06/02/17 01:27 Room Air 06/02/17 00:00 97.7 72 18 138/82 92 Room Air 97.7 Intake and Output 06/01/17 06/02/17 19:00 07:00 Intake Total 480 ml 750.000 ml Balance 480 ml 750.000 ml Intake Oral 480 ml 500 ml IV Total 250.000 ml # Voids 3 3 Objective General Appearance: WD/WN HEENT: normocephalic, atraumatic Respiratory/Chest: chest wall non-tender, lungs clear, no accessory muscle use Cardiovascular: normal rate, regular rhythm Abdomen: normal bowel sounds, no mass Genitourinary: normal external genitalia Extremities: no cyanosis Skin: no lesions 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 Lymphatic: no neck adenopathy Microbiology Date/Time Source Procedure Growth Status 05/30/17 23:18 Urine,Clean Catch Urine Culture - Preliminary NO GROWTH AFTER 24 HOURS Resulted Laboratory Tests 06/02/17 05:45: White Blood Count 7.6, Red Blood Count 4.61, Hemoglobin 11.4L, Hematocrit 36.0L , Mean Corpuscular Volume 78L, Mean Corpuscular Hemoglobin 24.6L, Mean Corpuscular Hemoglobin Concent 31.5L, Red Cell Distribution Width 13.9, Platelet Count 489H, Mean Platelet Volume 6.0L, Neutrophils (%) (Auto) 41.5L, Lymphocytes (%) (Auto) 51.8H, Monocytes (%) (Auto) 5.3, Eosinophils (%) (Auto) 1.0, Basophils (%) (Auto) 0.3, Sodium Level 138, Potassium Level 4.3, Chloride Level 105, Carbon Dioxide Level 27, Anion Gap 6, Blood Urea Nitrogen 22H, Creatinine 1.1, Estimat Glomerular Filtration Rate > 60, Glucose Level 73L, Calcium Level 8.9 Current Medications Medications (Trade) Dose Ordered Sig/Adolfo Route PRN Reason Start Time Stop Time Status Last Admin Dose Admin Acetaminophen (Tylenol) 500 mg Q8HR PRN ORAL Mild Pain/Temp > 100.5 05/30/17 08:15 06/29/17 08:14 Acetaminophen/ Hydrocodone Bitart ([place] 5/325) 1 tab Q6H PRN ORAL Severe Pain (Pain Scale 7-10) 05/30/17 08:15 06/06/17 08:14 06/02/17 19:23 Amlodipine Besylate (Norvasc) 5 mg Q12HR ORAL 05/30/17 09:00 06/29/17 08:59 06/02/17 20:54 Aspirin (ASA) 81 mg DAILY ORAL 05/30/17 09:00 06/29/17 08:59 06/02/17 09:06 Ceftriaxone Sodium 1 gm/ Sodium Chloride 55 ml @ 110 mls/hr Q24H IVPB 05/30/17 10:00 06/06/17 09:59 06/02/17 09:07 Docusate Sodium (Colace) 100 mg TWICE A DAY ORAL 05/30/17 09:00 06/29/17 08:59 06/02/17 16:55 Heparin Sodium (Porcine) (Heparin 5000 units/ml) 5,000 units EVERY 12 HOURS SUBQ 05/30/17 09:00 06/29/17 08:59 06/02/17 09:09 Lisinopril (Zestril) 10 mg DAILY ORAL 05/30/17 09:00 06/29/17 08:59 06/02/17 09:08 Magnesium Hydroxide (Mom) 30 ml HSPRN PRN ORAL Constipation 05/31/17 18:30 06/30/17 18:29 Nicotine (Nicoderm) 1 patch Q24H TDERMAL 06/02/17 09:00 07/02/17 08:59 Promethazine HCl (Phenergan Plain) 6.25 mg Q6H PRN ORAL For Cough 05/30/17 08:15 06/29/17 08:14 06/02/17 19:23 Vancomycin HCl (Vanco rx to dose) 1 ea DAILY PRN MISC Per rx protocol 05/30/17 08:30 06/29/17 08:29 Vancomycin/Sodium Chloride 250 ml @ 166.667 mls/hr Q12HR@1100,2300 IVPB 05/30/17 23:00 06/04/17 22:59 06/02/17 10:30 Marley Cam MD Jun 02, 2017 22:18
[2017-06-03] VITALS: BP 131/84
[2017-06-03] MEDS: Promethazine Plain 6.25mg/5ml ORAL PRN ×3 (01:59→20:44)
[2017-06-03] MEDS: Norco 5mg/325mg tab ORAL PRN ×3 (02:00→20:44)
[2017-06-03 04:18] VITALS: BP 117/58
[2017-06-03 07:54] LABS: BASOPHILS % (AUTO) 0.4 % (0.0-2.0); EOSINOPHILS % (AUTO) 1.2 % (0.0-3.0); HEMATOCRIT 36.6 % (37.0-47.0); HEMOGLOBIN 11.4 G/DL (12.0-16.0); LYMPHOCYTES % (AUTO) 52.9 % (20.0-45.0); MEAN CORPUSCULAR VOLUME 78 FL (80-99); MONOCYTES % (AUTO) 5.2 % (1.0-10.0); NEUTROPHILS % (AUTO) 40.3 % (45.0-75.0); PLATELET COUNT 503 K/UL (150-450); RED BLOOD COUNT 4.67 M/UL (4.20-5.40); RED CELL DISTRIBUTION WIDTH 14.2 % (11.6-14.8); WHITE BLOOD COUNT 7.6 K/UL (4.8-10.8)
[2017-06-03 08:00] VITALS: BP 144/76
[2017-06-03 08:03] LABS: ANION GAP 8 mmol/L (5-15); BLOOD UREA NITROGEN 21 mg/dL (7-18); CALCIUM 8.6 MG/DL (8.5-10.1); CARBON DIOXIDE 26 MMOL/L (21-32); CHLORIDE 106 MMOL/L (98-107); CREATININE 1.1 MG/DL (0.55-1.30); POTASSIUM 4.2 MMOL/L (3.5-5.1); SODIUM 140 MMOL/L (136-145)
[2017-06-03] MEDS: cefTRIAXone 1 GM in NS 55 ML IVPB SCH (08:59)
[2017-06-03] MEDS: Aspirin Baby 81mg ORAL SCH (08:59)
[2017-06-03] MEDS: Docusate 100mg cap ORAL SCH ×2 (08:59→17:07)
[2017-06-03] MEDS: Lisinopril 10mg tab ORAL SCH (08:59)
[2017-06-03] MEDS: Heparin 5000 units/ml inj SUBQ SCH ×2 (09:00→20:45)
[2017-06-03 12:00] VITALS: BP 149/86
--- NOTE | 2017-06-03 12:01 | Internal Med Progress Note ---
Subjective Date of Service: Jun 03, 2017 Physician Name Caryn Sanchez Attending Physician Kenneth Staton MD Current Medications Medications (Trade) Dose Ordered Sig/Adolfo Route PRN Reason Start Time Stop Time Status Last Admin Dose Admin Acetaminophen (Tylenol) 500 mg Q8HR PRN ORAL Mild Pain/Temp > 100.5 05/30/17 08:15 06/29/17 08:14 Acetaminophen/ Hydrocodone Bitart ([place] 5/325) 1 tab Q6H PRN ORAL Severe Pain (Pain Scale 7-10) 05/30/17 08:15 06/06/17 08:14 06/03/17 08:59 Amlodipine Besylate (Norvasc) 5 mg Q12HR ORAL 05/30/17 09:00 06/29/17 08:59 06/03/17 08:59 Aspirin (ASA) 81 mg DAILY ORAL 05/30/17 09:00 06/29/17 08:59 06/03/17 08:59 Ceftriaxone Sodium 1 gm/ Sodium Chloride 55 ml @ 110 mls/hr Q24H IVPB 05/30/17 10:00 06/06/17 09:59 06/03/17 08:59 Docusate Sodium (Colace) 100 mg TWICE A DAY ORAL 05/30/17 09:00 06/29/17 08:59 06/03/17 08:59 Heparin Sodium (Porcine) (Heparin 5000 units/ml) 5,000 units EVERY 12 HOURS SUBQ 05/30/17 09:00 06/29/17 08:59 06/03/17 09:00 Lisinopril (Zestril) 10 mg DAILY ORAL 05/30/17 09:00 06/29/17 08:59 06/03/17 08:59 Magnesium Hydroxide (Mom) 30 ml HSPRN PRN ORAL Constipation 05/31/17 18:30 06/30/17 18:29 Nicotine (Nicoderm) 1 patch Q24H TDERMAL 06/02/17 09:00 07/02/17 08:59 Promethazine HCl (Phenergan Plain) 6.25 mg Q6H PRN ORAL For Cough 05/30/17 08:15 06/29/17 08:14 06/03/17 08:59 Vancomycin HCl (Vanco rx to dose) 1 ea DAILY PRN MISC Per rx protocol 05/30/17 08:30 06/29/17 08:29 Vancomycin/Sodium Chloride 250 ml @ 166.667 mls/hr Q12HR@1100,2300 IVPB 05/30/17 23:00 06/04/17 22:59 06/02/17 22:31 Allergies: Coded Allergies: IBUPROFEN (Verified Allergy, Unknown, 12/05/16) TRAMADOL (Unverified Allergy, Unknown, 08/25/14) ROS Limited/Unobtainable: No Constitutional: Reports: no symptoms HEENT: Reports: no symptoms Cardiovascular: Reports: no symptoms Respiratory: Reports: no symptoms Gastrointestinal/Abdominal: Reports: no symptoms Genitourinary: Reports: no symptoms Neurologic/Psychiatric: Reports: no symptoms Subjective 67 YO F with right hip pain. Cover for Int Daniel-Dr Staton Objective Last Vital Signs Date Time Temp Pulse Resp B/P (MAP) Pulse Ox O2 Delivery O2 Flow Rate FiO2 06/03/17 09:58 98.2 06/03/17 08:59 144/76 06/03/17 08:59 78 06/03/17 08:00 21 96 06/03/17 04:18 Room Air Laboratory Tests Test 06/03/17 05:35 White Blood Count 7.6 K/UL (4.8-10.8) Red Blood Count 4.67 M/UL (4.20-5.40) Hemoglobin 11.4 G/DL (12.0-16.0) L Hematocrit 36.6 % (37.0-47.0) L Mean Corpuscular Volume 78 FL (80-99) L Mean Corpuscular Hemoglobin 24.4 PG (27.0-31.0) L Mean Corpuscular Hemoglobin Concent 31.1 G/DL (32.0-36.0) L Red Cell Distribution Width 14.2 % (11.6-14.8) Platelet Count 503 K/UL (150-450) H Mean Platelet Volume 5.9 FL (6.5-10.1) L Neutrophils (%) (Auto) 40.3 % (45.0-75.0) L Lymphocytes (%) (Auto) 52.9 % (20.0-45.0) H Monocytes (%) (Auto) 5.2 % (1.0-10.0) Eosinophils (%) (Auto) 1.2 % (0.0-3.0) Basophils (%) (Auto) 0.4 % (0.0-2.0) Sodium Level 140 MMOL/L (136-145) Potassium Level 4.2 MMOL/L (3.5-5.1) Chloride Level 106 MMOL/L (98-107) Carbon Dioxide Level 26 MMOL/L (21-32) Anion Gap 8 mmol/L (5-15) Blood Urea Nitrogen 21 mg/dL (7-18) H Creatinine 1.1 MG/DL (0.55-1.30) Estimat Glomerular Filtration Rate > 60 mL/min (>60) Glucose Level 77 MG/DL (74-106) Calcium Level 8.6 MG/DL (8.5-10.1) Intake and Output 06/02/17 06/03/17 19:00 07:00 Intake Total 480 ml 250.000 ml Balance 480 ml 250.000 ml Intake Oral 480 ml IV Total 250.000 ml # Voids 3 2 Objective General Appearance: WD/WN, alert, mild distress EENT: PERRL/EOMI, normal ENT inspection, TMs normal Neck: non-tender, normal alignment, supple, normal inspection Cardiovascular: normal peripheral pulses, normal rate, regular rhythm, no gallop/murmur, no JVD Respiratory/Chest: chest wall non-tender, lungs clear, normal breath sounds, no respiratory distress, no accessory muscle use Abdomen: normal bowel sounds, non tender, soft, no organomegaly, no mass Extremities: normal range of motion, non-tender - right hip pain, 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 Await cultures. Continue vanco and ceftriaxone per ID. See ortho consult. Status: stable CARYN SANCHEZ Jun 03, 2017 12:01
[2017-06-03] MEDS: Vancomycin 750mg/NS 250ml IVPB SCH ×2 (13:01→22:56)
[2017-06-03 15:55] VITALS: BP 113/73
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
[2017-06-03 20:19] VITALS: BP 166/96
--- NOTE | 2017-06-03 22:32 | Pulmonology Progress Note ---
Assessment/Plan Problems: (1) Right hip pain (2) COPD (chronic obstructive pulmonary disease) (3) old lacunar strokes (4) H/O: CVA (cerebrovascular accident) (5) HTN (hypertension) (6) Cocaine abuse Assessment/Plan s/p right hip joint aspiration continue abx check cultures check sputum incentive spirometry antitussives. cultures pending Subjective ROS Limited/Unobtainable: No Allergies: Coded Allergies: IBUPROFEN (Verified Allergy, Unknown, 12/05/16) TRAMADOL (Unverified Allergy, Unknown, 08/25/14) Objective Last 24 Hour Vital Signs Date Time Temp Pulse Resp B/P (MAP) Pulse Ox O2 Delivery O2 Flow Rate FiO2 06/03/17 20:45 83 166/96 06/03/17 20:44 98.1 06/03/17 20:19 98.1 83 20 166/96 92 Room Air 98.1 06/03/17 15:55 97.5 53 18 113/73 100 97.5 06/03/17 12:00 97.7 80 19 149/86 97 97.7 06/03/17 09:58 98.2 06/03/17 08:59 144/76 06/03/17 08:59 98.2 06/03/17 08:59 78 144/76 06/03/17 08:00 98.2 78 21 144/76 96 98.2 06/03/17 04:18 97.2 85 18 117/58 99 Room Air 97.2 06/03/17 02:00 98.1 06/03/17 01:54 Room Air 06/03/17 00:00 98.1 86 18 131/84 93 98.1 Intake and Output 06/02/17 06/03/17 19:00 07:00 Intake Total 480 ml 250.000 ml Balance 480 ml 250.000 ml Intake Oral 480 ml IV Total 250.000 ml # Voids 3 2 Objective General Appearance: WD/WN HEENT: normocephalic, atraumatic Respiratory/Chest: chest wall non-tender, lungs clear, no accessory muscle use Cardiovascular: normal rate, regular rhythm Abdomen: normal bowel sounds, no mass Genitourinary: normal external genitalia Extremities: no cyanosis Skin: no lesions 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 Lymphatic: no neck adenopathy Laboratory Tests 06/03/17 05:35: White Blood Count 7.6, Red Blood Count 4.67, Hemoglobin 11.4L, Hematocrit 36.6L , Mean Corpuscular Volume 78L, Mean Corpuscular Hemoglobin 24.4L, Mean Corpuscular Hemoglobin Concent 31.1L, Red Cell Distribution Width 14.2, Platelet Count 503H, Mean Platelet Volume 5.9L, Neutrophils (%) (Auto) 40.3L, Lymphocytes (%) (Auto) 52.9H, Monocytes (%) (Auto) 5.2, Eosinophils (%) (Auto) 1.2, Basophils (%) (Auto) 0.4, Sodium Level 140, Potassium Level 4.2, Chloride Level 106, Carbon Dioxide Level 26, Anion Gap 8, Blood Urea Nitrogen 21H, Creatinine 1.1, Estimat Glomerular Filtration Rate > 60, Glucose Level 77, Calcium Level 8.6 Current Medications Medications (Trade) Dose Ordered Sig/Adolfo Route PRN Reason Start Time Stop Time Status Last Admin Dose Admin Acetaminophen (Tylenol) 500 mg Q8HR PRN ORAL Mild Pain/Temp > 100.5 05/30/17 08:15 06/29/17 08:14 Acetaminophen/ Hydrocodone Bitart ([place] 5/325) 1 tab Q6H PRN ORAL Severe Pain (Pain Scale 7-10) 05/30/17 08:15 06/06/17 08:14 06/03/17 20:44 Amlodipine Besylate (Norvasc) 5 mg Q12HR ORAL 05/30/17 09:00 06/29/17 08:59 06/03/17 20:45 Aspirin (ASA) 81 mg DAILY ORAL 05/30/17 09:00 06/29/17 08:59 06/03/17 08:59 Ceftriaxone Sodium 1 gm/ Sodium Chloride 55 ml @ 110 mls/hr Q24H IVPB 05/30/17 10:00 06/06/17 09:59 06/03/17 08:59 Docusate Sodium (Colace) 100 mg TWICE A DAY ORAL 05/30/17 09:00 06/29/17 08:59 06/03/17 08:59 Heparin Sodium (Porcine) (Heparin 5000 units/ml) 5,000 units EVERY 12 HOURS SUBQ 05/30/17 09:00 06/29/17 08:59 06/03/17 09:00 Lisinopril (Zestril) 10 mg DAILY ORAL 05/30/17 09:00 06/29/17 08:59 06/03/17 08:59 Magnesium Hydroxide (Mom) 30 ml HSPRN PRN ORAL Constipation 05/31/17 18:30 06/30/17 18:29 Nicotine (Nicoderm) 1 patch Q24H TDERMAL 06/02/17 09:00 07/02/17 08:59 Promethazine HCl (Phenergan Plain) 6.25 mg Q6H PRN ORAL For Cough 05/30/17 08:15 06/29/17 08:14 06/03/17 20:44 Vancomycin HCl (Vanco rx to dose) 1 ea DAILY PRN MISC Per rx protocol 05/30/17 08:30 06/29/17 08:29 Vancomycin/Sodium Chloride 250 ml @ 166.667 mls/hr Q12HR@1100,2300 IVPB 05/30/17 23:00 06/06/17 22:59 06/03/17 13:01 Marley Cam MD Jun 03, 2017 22:32
[2017-06-04 00:47] VITALS: BP 145/82
[2017-06-04 04:42] VITALS: BP 126/78
[2017-06-04 07:40] LABS: BASOPHILS % (AUTO) 0.3 % (0.0-2.0); EOSINOPHILS % (AUTO) 0.7 % (0.0-3.0); HEMATOCRIT 36.6 % (37.0-47.0); HEMOGLOBIN 11.3 G/DL (12.0-16.0); LYMPHOCYTES % (AUTO) 49.9 % (20.0-45.0); MEAN CORPUSCULAR VOLUME 78 FL (80-99); MONOCYTES % (AUTO) 3.1 % (1.0-10.0); PLATELET COUNT 511 K/UL (150-450); RED BLOOD COUNT 4.69 M/UL (4.20-5.40); RED CELL DISTRIBUTION WIDTH 14.5 % (11.6-14.8); WHITE BLOOD COUNT 8.7 K/UL (4.8-10.8)
[2017-06-04 08:00] VITALS: BP 148/80
[2017-06-04 08:03] LABS: ANION GAP 9 mmol/L (5-15); BLOOD UREA NITROGEN 29 mg/dL (7-18); CALCIUM 8.7 MG/DL (8.5-10.1); CARBON DIOXIDE 26 MMOL/L (21-32); CHLORIDE 104 MMOL/L (98-107); POTASSIUM 4.3 MMOL/L (3.5-5.1); SODIUM 139 MMOL/L (136-145)
[2017-06-04] MEDS: Docusate 100mg cap ORAL SCH ×2 (09:32→17:21)
[2017-06-04] MEDS: Lisinopril 10mg tab ORAL SCH (09:32)
[2017-06-04] MEDS: Aspirin Baby 81mg ORAL SCH (09:32)
[2017-06-04] MEDS: cefTRIAXone 1 GM in NS 55 ML IVPB SCH (09:32)
[2017-06-04] MEDS: Heparin 5000 units/ml inj SUBQ SCH ×2 (09:33→20:16)
[2017-06-04] MEDS: Norco 5mg/325mg tab ORAL PRN ×2 (09:35→20:17)
[2017-06-04] MEDS: Vancomycin 750mg/NS 250ml IVPB SCH (11:20)
[2017-06-04 12:00] VITALS: BP 133/78
[2017-06-04 15:51] VITALS: BP 131/65
--- NOTE | 2017-06-04 17:07 | Internal Med Progress Note ---
Subjective Date of Service: Jun 04, 2017 Physician Name Caryn Sanchez Attending Physician Kenneth Staton MD Current Medications Medications (Trade) Dose Ordered Sig/Adolfo Route PRN Reason Start Time Stop Time Status Last Admin Dose Admin Acetaminophen (Tylenol) 500 mg Q8HR PRN ORAL Mild Pain/Temp > 100.5 05/30/17 08:15 06/29/17 08:14 Acetaminophen/ Hydrocodone Bitart ([place] 5/325) 1 tab Q6H PRN ORAL Severe Pain (Pain Scale 7-10) 05/30/17 08:15 06/06/17 08:14 06/04/17 09:35 Amlodipine Besylate (Norvasc) 5 mg Q12HR ORAL 05/30/17 09:00 06/29/17 08:59 06/04/17 09:32 Aspirin (ASA) 81 mg DAILY ORAL 05/30/17 09:00 06/29/17 08:59 06/04/17 09:32 Ceftriaxone Sodium 1 gm/ Sodium Chloride 55 ml @ 110 mls/hr Q24H IVPB 05/30/17 10:00 06/06/17 09:59 06/04/17 09:32 Docusate Sodium (Colace) 100 mg TWICE A DAY ORAL 05/30/17 09:00 06/29/17 08:59 06/04/17 09:32 Fluoxetine HCl (PROzac) 20 mg DAILY ORAL 06/05/17 09:00 07/05/17 08:59 Heparin Sodium (Porcine) (Heparin 5000 units/ml) 5,000 units EVERY 12 HOURS SUBQ 05/30/17 09:00 06/29/17 08:59 06/04/17 09:33 Lisinopril (Zestril) 10 mg DAILY ORAL 05/30/17 09:00 06/29/17 08:59 06/04/17 09:32 Magnesium Hydroxide (Mom) 30 ml HSPRN PRN ORAL Constipation 05/31/17 18:30 06/30/17 18:29 Nicotine (Nicoderm) 1 patch Q24H TDERMAL 06/02/17 09:00 07/02/17 08:59 Promethazine HCl (Phenergan Plain) 6.25 mg Q6H PRN ORAL For Cough 05/30/17 08:15 06/29/17 08:14 06/03/17 20:44 Vancomycin HCl (Vanco rx to dose) 1 ea DAILY PRN MISC Per rx protocol 05/30/17 08:30 06/29/17 08:29 Vancomycin/Sodium Chloride 250 ml @ 166.667 mls/hr Q12HR@1100,2300 IVPB 05/30/17 23:00 06/06/17 22:59 06/04/17 11:20 Allergies: Coded Allergies: IBUPROFEN (Verified Allergy, Unknown, 12/05/16) TRAMADOL (Unverified Allergy, Unknown, 08/25/14) ROS Limited/Unobtainable: No Constitutional: Reports: no symptoms HEENT: Reports: no symptoms Cardiovascular: Reports: no symptoms Respiratory: Reports: no symptoms Gastrointestinal/Abdominal: Reports: no symptoms Genitourinary: Reports: no symptoms Neurologic/Psychiatric: Reports: no symptoms Subjective 67 YO F with right hip pain. Cover for Int Daniel-Dr Staton Objective Last Vital Signs Date Time Temp Pulse Resp B/P (MAP) Pulse Ox O2 Delivery O2 Flow Rate FiO2 06/04/17 15:51 97.5 73 18 131/65 95 97.5 06/04/17 04:42 Room Air Laboratory Tests Test 06/04/17 06:15 White Blood Count 8.7 K/UL (4.8-10.8) Red Blood Count 4.69 M/UL (4.20-5.40) Hemoglobin 11.3 G/DL (12.0-16.0) L Hematocrit 36.6 % (37.0-47.0) L Mean Corpuscular Volume 78 FL (80-99) L Mean Corpuscular Hemoglobin 24.0 PG (27.0-31.0) L Mean Corpuscular Hemoglobin Concent 30.8 G/DL (32.0-36.0) L Red Cell Distribution Width 14.5 % (11.6-14.8) Platelet Count 511 K/UL (150-450) H Mean Platelet Volume 5.9 FL (6.5-10.1) L Neutrophils (%) (Auto) 46.0 % (45.0-75.0) Lymphocytes (%) (Auto) 49.9 % (20.0-45.0) H Monocytes (%) (Auto) 3.1 % (1.0-10.0) Eosinophils (%) (Auto) 0.7 % (0.0-3.0) Basophils (%) (Auto) 0.3 % (0.0-2.0) Sodium Level 139 MMOL/L (136-145) Potassium Level 4.3 MMOL/L (3.5-5.1) Chloride Level 104 MMOL/L (98-107) Carbon Dioxide Level 26 MMOL/L (21-32) Anion Gap 9 mmol/L (5-15) Blood Urea Nitrogen 29 mg/dL (7-18) H Creatinine 1.0 MG/DL (0.55-1.30) Estimat Glomerular Filtration Rate > 60 mL/min (>60) Glucose Level 85 MG/DL (74-106) Calcium Level 8.7 MG/DL (8.5-10.1) Intake and Output 06/03/17 06/04/17 19:00 07:00 Intake Total 665.000 ml Balance 665.000 ml Intake Oral 360 ml IV Total 305.000 ml # Voids 4 # Bowel Movements 1 Objective General Appearance: WD/WN, alert, mild distress EENT: PERRL/EOMI, normal ENT inspection, TMs normal Neck: non-tender, normal alignment, supple, normal inspection Cardiovascular: normal peripheral pulses, normal rate, regular rhythm, no gallop/murmur, no JVD Respiratory/Chest: chest wall non-tender, lungs clear, normal breath sounds, no respiratory distress, no accessory muscle use Abdomen: normal bowel sounds, non tender, soft, no organomegaly, no mass Extremities: normal range of motion, non-tender - right hip pain, 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 Await cultures. Continue vanco and ceftriaxone per ID. See ortho consult. Assessment/Plan Discharge planning CARYN SANCHEZ Jun 04, 2017 17:07
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
--- NOTE | 2017-06-04 19:33 | Pulmonology Progress Note ---
Assessment/Plan Problems: (1) Right hip pain (2) COPD (chronic obstructive pulmonary disease) (3) old lacunar strokes (4) H/O: CVA (cerebrovascular accident) (5) HTN (hypertension) (6) Cocaine abuse Assessment/Plan s/p right hip joint aspiration check cultures check sputum incentive spirometry antitussives. symptomatic treatment Subjective ROS Limited/Unobtainable: No Constitutional: Reports: no symptoms HEENT: Repors: no symptoms Allergies: Coded Allergies: IBUPROFEN (Verified Allergy, Unknown, 12/05/16) TRAMADOL (Unverified Allergy, Unknown, 08/25/14) Objective Last 24 Hour Vital Signs Date Time Temp Pulse Resp B/P (MAP) Pulse Ox O2 Delivery O2 Flow Rate FiO2 06/04/17 15:51 97.5 73 18 131/65 95 97.5 06/04/17 12:00 97.0 70 14 133/78 97 97.0 06/04/17 10:34 97.6 06/04/17 09:35 97.6 06/04/17 09:32 148/80 06/04/17 09:32 80 148/80 06/04/17 08:00 97.6 80 18 148/80 99 97.6 06/04/17 04:42 98.2 62 20 126/78 95 Room Air 98.2 06/04/17 00:47 98.2 82 20 145/82 95 Room Air 98.2 06/03/17 20:45 83 166/96 06/03/17 20:44 98.1 06/03/17 20:19 98.1 83 20 166/96 92 Room Air 98.1 Intake and Output 06/03/17 06/04/17 19:00 07:00 Intake Total 665.000 ml Balance 665.000 ml Intake Oral 360 ml IV Total 305.000 ml # Voids 4 # Bowel Movements 1 Objective General Appearance: WD/WN HEENT: normocephalic, atraumatic Respiratory/Chest: chest wall non-tender, lungs clear, no accessory muscle use Cardiovascular: normal rate, regular rhythm Abdomen: normal bowel sounds, no mass Genitourinary: normal external genitalia Extremities: no cyanosis Skin: no lesions 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 normal Lymphatic: no neck adenopathy Laboratory Tests 06/04/17 06:15: White Blood Count 8.7, Red Blood Count 4.69, Hemoglobin 11.3L, Hematocrit 36.6L , Mean Corpuscular Volume 78L, Mean Corpuscular Hemoglobin 24.0L, Mean Corpuscular Hemoglobin Concent 30.8L, Red Cell Distribution Width 14.5, Platelet Count 511H, Mean Platelet Volume 5.9L, Neutrophils (%) (Auto) 46.0, Lymphocytes (%) (Auto) 49.9H, Monocytes (%) (Auto) 3.1, Eosinophils (%) (Auto) 0.7, Basophils (%) (Auto) 0.3, Sodium Level 139, Potassium Level 4.3, Chloride Level 104, Carbon Dioxide Level 26, Anion Gap 9, Blood Urea Nitrogen 29H, Creatinine 1.0, Estimat Glomerular Filtration Rate > 60, Glucose Level 85, Calcium Level 8.7 Current Medications Medications (Trade) Dose Ordered Sig/Adolfo Route PRN Reason Start Time Stop Time Status Last Admin Dose Admin Acetaminophen (Tylenol) 500 mg Q8HR PRN ORAL Mild Pain/Temp > 100.5 05/30/17 08:15 06/29/17 08:14 Acetaminophen/ Hydrocodone Bitart ([place] 5/325) 1 tab Q6H PRN ORAL Severe Pain (Pain Scale 7-10) 05/30/17 08:15 06/06/17 08:14 06/04/17 09:35 Amlodipine Besylate (Norvasc) 5 mg Q12HR ORAL 05/30/17 09:00 06/29/17 08:59 06/04/17 09:32 Aspirin (ASA) 81 mg DAILY ORAL 05/30/17 09:00 06/29/17 08:59 06/04/17 09:32 Docusate Sodium (Colace) 100 mg TWICE A DAY ORAL 05/30/17 09:00 06/29/17 08:59 06/04/17 09:32 Fluoxetine HCl (PROzac) 20 mg DAILY ORAL 06/05/17 09:00 07/05/17 08:59 Heparin Sodium (Porcine) (Heparin 5000 units/ml) 5,000 units EVERY 12 HOURS SUBQ 05/30/17 09:00 06/29/17 08:59 06/04/17 09:33 Lisinopril (Zestril) 10 mg DAILY ORAL 05/30/17 09:00 06/29/17 08:59 06/04/17 09:32 Magnesium Hydroxide (Mom) 30 ml HSPRN PRN ORAL Constipation 05/31/17 18:30 06/30/17 18:29 Nicotine (Nicoderm) 1 patch Q24H TDERMAL 06/02/17 09:00 07/02/17 08:59 Promethazine HCl (Phenergan Plain) 6.25 mg Q6H PRN ORAL For Cough 05/30/17 08:15 06/29/17 08:14 06/03/17 20:44 Marley Cam MD Jun 04, 2017 19:32
[2017-06-04 19:34] VITALS: BP 138/86
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
[2017-06-05 00:18] VITALS: BP 101/61
[2017-06-05 04:36] VITALS: BP 106/60
[2017-06-05 08:00] VITALS: BP 126/68
[2017-06-05] MEDS: Aspirin Baby 81mg ORAL SCH (08:34)
[2017-06-05] MEDS: Docusate 100mg cap ORAL SCH ×3 (08:35→18:00)
[2017-06-05] MEDS: Lisinopril 10mg tab ORAL SCH (08:35)
[2017-06-05] MEDS: Heparin 5000 units/ml inj SUBQ SCH (08:39)
[2017-06-05 12:00] VITALS: BP 132/85
[2017-06-05] MEDS: Norco 5mg/325mg tab ORAL PRN (12:09)
[2017-06-05] MEDS: Promethazine Plain 6.25mg/5ml ORAL PRN (12:56)
--- NOTE | 2017-06-05 13:07 | Internal Med Progress Note ---
Subjective Date of Service: Jun 05, 2017 Physician Name Bib Jacobson Attending Physician Kenneth Staton MD Current Medications Medications (Trade) Dose Ordered Sig/Adolfo Route PRN Reason Start Time Stop Time Status Last Admin Dose Admin Acetaminophen (Tylenol) 500 mg Q8HR PRN ORAL Mild Pain/Temp > 100.5 05/30/17 08:15 06/29/17 08:14 Acetaminophen/ Hydrocodone Bitart ([place] 5/325) 1 tab Q6H PRN ORAL Severe Pain (Pain Scale 7-10) 05/30/17 08:15 06/06/17 08:14 06/05/17 12:09 Amlodipine Besylate (Norvasc) 5 mg Q12HR ORAL 05/30/17 09:00 06/29/17 08:59 06/05/17 08:35 Aspirin (ASA) 81 mg DAILY ORAL 05/30/17 09:00 06/29/17 08:59 06/05/17 08:34 Docusate Sodium (Colace) 100 mg TWICE A DAY ORAL 05/30/17 09:00 06/29/17 08:59 06/04/17 09:32 Fluoxetine HCl (PROzac) 20 mg DAILY ORAL 06/05/17 09:00 07/05/17 08:59 Heparin Sodium (Porcine) (Heparin 5000 units/ml) 5,000 units EVERY 12 HOURS SUBQ 05/30/17 09:00 06/29/17 08:59 06/05/17 08:39 Lisinopril (Zestril) 10 mg DAILY ORAL 05/30/17 09:00 06/29/17 08:59 06/05/17 08:35 Magnesium Hydroxide (Mom) 30 ml HSPRN PRN ORAL Constipation 05/31/17 18:30 06/30/17 18:29 Nicotine (Nicoderm) 1 patch Q24H TDERMAL 06/02/17 09:00 07/02/17 08:59 Promethazine HCl (Phenergan Plain) 6.25 mg Q6H PRN ORAL For Cough 05/30/17 08:15 06/29/17 08:14 06/05/17 12:56 Allergies: Coded Allergies: IBUPROFEN (Verified Allergy, Unknown, 12/05/16) TRAMADOL (Unverified Allergy, Unknown, 08/25/14) ROS Limited/Unobtainable: No Constitutional: Reports: no symptoms HEENT: Reports: no symptoms Cardiovascular: Reports: no symptoms Respiratory: Reports: no symptoms Gastrointestinal/Abdominal: Reports: no symptoms Genitourinary: Reports: no symptoms Neurologic/Psychiatric: Reports: no symptoms Subjective 67 YO F with right hip pain. Cover for Int Med-Dr Staton. Await transfer to SNF Objective Last Vital Signs Date Time Temp Pulse Resp B/P (MAP) Pulse Ox O2 Delivery O2 Flow Rate FiO2 06/05/17 08:35 126/68 06/05/17 08:35 96 06/05/17 08:00 97.3 18 96 97.3 06/05/17 04:36 Room Air Intake and Output 06/04/17 06/05/17 19:00 07:00 Intake Total 785.000 ml Balance 785.000 ml Intake Oral 480 ml IV Total 305.000 ml # Voids 5 # Bowel Movements 1 Objective General Appearance: WD/WN, alert, mild distress EENT: PERRL/EOMI, normal ENT inspection, TMs normal Neck: non-tender, normal alignment, supple, normal inspection Cardiovascular: normal peripheral pulses, normal rate, regular rhythm, no gallop/murmur, no JVD Respiratory/Chest: chest wall non-tender, lungs clear, normal breath sounds, no respiratory distress, no accessory muscle use Abdomen: normal bowel sounds, non tender, soft, no organomegaly, no mass Extremities: normal range of motion, non-tender - right hip pain, other 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 Await cultures. Continue vanco and ceftriaxone per ID. See ortho consult. Assessment/Plan Discharge planning: BIB [facility] Jun 05, 2017 13:07
[2017-06-05 16:00] VITALS: BP 126/75
[2017-06-05] MEDS ORDERED: HYDROcodone/Acetamin 10/325 tab ORAL PRN (17:00)
[2017-06-05] MEDS ORDERED: NORCO 5-325 TA1 EAC1 ORAL (17:01)
[2017-06-05] MEDS ORDERED: NORCO 10-325 T1 EACH ORAL (17:03)
--- NOTE | 2017-06-05 17:16 | Pulmonology Progress Note ---
Assessment/Plan Problems: (1) Right hip pain (2) COPD (chronic obstructive pulmonary disease) (3) old lacunar strokes (4) H/O: CVA (cerebrovascular accident) (5) HTN (hypertension) (6) Cocaine abuse Assessment/Plan dc planning pain is better controlled incentive spirometry antitussives. symptomatic treatment dc planning Subjective ROS Limited/Unobtainable: No Constitutional: Reports: no symptoms HEENT: Repors: no symptoms Respiratory: Reports: shortness of breath Allergies: Coded Allergies: IBUPROFEN (Verified Allergy, Unknown, 12/05/16) TRAMADOL (Unverified Allergy, Unknown, 08/25/14) Objective Last 24 Hour Vital Signs Date Time Temp Pulse Resp B/P (MAP) Pulse Ox O2 Delivery O2 Flow Rate FiO2 06/05/17 16:00 97.7 84 18 126/75 94 97.7 06/05/17 12:00 97.9 76 18 132/85 97 97.9 06/05/17 08:35 126/68 06/05/17 08:35 96 126/68 06/05/17 08:00 97.3 72 18 126/68 96 97.3 06/05/17 04:36 97.6 94 20 106/60 94 Room Air 97.6 06/05/17 00:18 97.4 86 20 101/61 96 Room Air 97.4 06/04/17 21:06 98.1 06/04/17 20:17 98.1 06/04/17 20:17 80 138/86 06/04/17 19:34 98.1 80 20 138/86 97 Room Air 98.1 Intake and Output 06/04/17 06/05/17 19:00 07:00 Intake Total 785.000 ml Balance 785.000 ml Intake Oral 480 ml IV Total 305.000 ml # Voids 5 # Bowel Movements 1 Objective General Appearance: WD/WN HEENT: normocephalic, atraumatic Respiratory/Chest: chest wall non-tender, lungs clear, no accessory muscle use Cardiovascular: normal rate, regular rhythm Abdomen: normal bowel sounds, no mass Genitourinary: normal external genitalia Extremities: no cyanosis Skin: no lesions 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/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 grossly normal Lymphatic: no neck adenopathy Current Medications Medications (Trade) Dose Ordered Sig/Adolfo Route PRN Reason Start Time Stop Time Status Last Admin Dose Admin Acetaminophen (Tylenol) 500 mg Q8HR PRN ORAL Mild Pain/Temp > 100.5 05/30/17 08:15 06/29/17 08:14 06/05/17 16:37 Acetaminophen/ Hydrocodone Bitart ([place] 10/325) 1 tab Q4H PRN ORAL For Pain 06/05/17 17:00 06/12/17 16:59 UNV Amlodipine Besylate (Norvasc) 5 mg Q12HR ORAL 05/30/17 09:00 06/29/17 08:59 06/05/17 08:35 Aspirin (ASA) 81 mg DAILY ORAL 05/30/17 09:00 06/29/17 08:59 06/05/17 08:34 Docusate Sodium (Colace) 100 mg TWICE A DAY ORAL 05/30/17 09:00 06/29/17 08:59 06/04/17 09:32 Fluoxetine HCl (PROzac) 20 mg DAILY ORAL 06/05/17 09:00 07/05/17 08:59 Heparin Sodium (Porcine) (Heparin 5000 units/ml) 5,000 units EVERY 12 HOURS SUBQ 05/30/17 09:00 06/29/17 08:59 06/05/17 08:39 Lisinopril (Zestril) 10 mg DAILY ORAL 05/30/17 09:00 06/29/17 08:59 06/05/17 08:35 Magnesium Hydroxide (Mom) 30 ml HSPRN PRN ORAL Constipation 05/31/17 18:30 06/30/17 18:29 Nicotine (Nicoderm) 1 patch Q24H TDERMAL 06/02/17 09:00 07/02/17 08:59 Promethazine HCl (Phenergan Plain) 6.25 mg Q6H PRN ORAL For Cough 05/30/17 08:15 06/29/17 08:14 06/05/17 12:56 Marley Cam MD Jun 05, 2017 17:16
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
--- NOTE | 2017-06-05 21:25 | General Progress Note ---
Assessment/Plan Status: stable, unchanged Subjective Date patient seen: Jun 04, 2017 Neurologic/Psychiatric: Reports: anxiety, depressed, emotional problems Allergies: Coded Allergies: IBUPROFEN (Verified Allergy, Unknown, 12/05/16) TRAMADOL (Unverified Allergy, Unknown, 08/25/14) Objective Last 24 Hour Vital Signs Date Time Temp Pulse Resp B/P (MAP) Pulse Ox O2 Delivery O2 Flow Rate FiO2 06/05/17 16:00 97.7 84 18 126/75 94 97.7 06/05/17 12:00 97.9 76 18 132/85 97 97.9 06/05/17 08:35 126/68 06/05/17 08:35 96 126/68 06/05/17 08:00 97.3 72 18 126/68 96 97.3 06/05/17 04:36 97.6 94 20 106/60 94 Room Air 97.6 06/05/17 00:18 97.4 86 20 101/61 96 Room Air 97.4 Intake and Output 06/04/17 06/05/17 19:00 07:00 Intake Total 785.000 ml Balance 785.000 ml Intake Oral 480 ml IV Total 305.000 ml # Voids 5 # Bowel Movements 1 Height (Feet): 5 Height (Inches): 7.00 Weight (Pounds): 132 General Appearance: no apparent distress, alert Neurologic: depressed affect Fadi Catherine M.D. Jun 05, 2017 21:25
--- NOTE | 2017-06-05 21:27 | General Progress Note ---
Assessment/Plan Assessment/Plan schizophrenia chronic paranoid type risperdal 2mg poq hs prozac 20mg qam the pt was provided with RO/ST Subjective Date patient seen: Jun 05, 2017 Neurologic/Psychiatric: Reports: anxiety, depressed, emotional problems Allergies: Coded Allergies: IBUPROFEN (Verified Allergy, Unknown, 12/05/16) TRAMADOL (Unverified Allergy, Unknown, 08/25/14) Subjective the pt refused to take meds. the pt is disorganized and delusional Objective Last 24 Hour Vital Signs Date Time Temp Pulse Resp B/P (MAP) Pulse Ox O2 Delivery O2 Flow Rate FiO2 06/05/17 16:00 97.7 84 18 126/75 94 97.7 06/05/17 12:00 97.9 76 18 132/85 97 97.9 06/05/17 08:35 126/68 06/05/17 08:35 96 126/68 06/05/17 08:00 97.3 72 18 126/68 96 97.3 06/05/17 04:36 97.6 94 20 106/60 94 Room Air 97.6 06/05/17 00:18 97.4 86 20 101/61 96 Room Air 97.4 Intake and Output 06/04/17 06/05/17 19:00 07:00 Intake Total 785.000 ml Balance 785.000 ml Intake Oral 480 ml IV Total 305.000 ml # Voids 5 # Bowel Movements 1 Height (Feet): 5 Height (Inches): 7.00 Weight (Pounds): 132 General Appearance: no apparent distress, alert, confused Fadi Catherine M.D. Jun 05, 2017 21:27
--- NOTE | 2017-06-06 12:16 | Discharge Summary ---
Discharge Summary Hospital Course Date of Admission May 30, 2017 at 03:25 Date of Discharge Jun 05, 2017 at 19:20 Admitting Diagnosis HPI Mia Cornejo is a 67 year old female who was admitted on May 30, 2017 at 03: 25 for Right Hip Pain,Septic Hip Hospital Course [id number] Discharge Discharge Disposition Patient was discharged to SNF/Subacute Facility(03) Estrella Harrison NP Jun 06, 2017 12:16
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
== END 2017-06-05 19:20 | DRG 551 ==
LOC: 4W 03:25
PROC: 0S993ZX Drainage of Right Hip Joint, Percutaneous Approach, Diagnostic (ICD-10-PCS; principal; 2017-05-30)
DX: M47.26 Other spondylosis with radiculopathy, lumbar region (principal); J18.9 Pneumonia, unspecified organism; F11.20 Opioid dependence, uncomplicated; F20.0 Paranoid schizophrenia; M25.551 Pain in right hip; I10 Essential (primary) hypertension; Z86.73 Personal history of transient ischemic attack (TIA), and cerebral infarction without residual deficits; R10.9 Unspecified abdominal pain; Z88.6 Allergy status to analgesic agent; F14.10 Cocaine abuse, uncomplicated; F17.200 Nicotine dependence, unspecified, uncomplicated; G89.4 Chronic pain syndrome; R10.2 Pelvic and perineal pain; Z59.0 Homelessness; J42 Unspecified chronic bronchitis
CPT/HCPCS: 36415; 71046; 72170; 77002; 80048; 80053; 80202; 81001; 83735; 84100; 85025; 85610; 85651; 85730; 86140; 87070; 87081; 87086; 87205

== ENCOUNTER 2019-05-28 12:33 | Emergency (ER) | payer MEDICARE, OTHER ==
[~2019-05-28] VITALS: Ht 170.2 cm; Wt 45.4 kg
[~2019-05-28 12:33] MED LIST changes: +LORATADINE10 M1 PO; +NORCO 10-325 T1 EACH ORAL; +NORCO 5-325 TA1 EAC1 ORAL; +PROMETHAZI6.25 MG/1 ORAL
[2019-05-28 12:44] VITALS: BP 158/92
--- NOTE | 2019-05-28 12:46 | NUR ---
ED Nurse Note:pt. came with flu like symptoms, generalized body achies
--- NOTE | 2019-05-28 13:42 | Emergency Room Report ---
History of Present Illness General Chief Complaint: Flu Like Symptoms Source: Patient Present Illness HPI 69-year-old female who reports has no significant past medical history from Street here complaining of 2 weeks of cough and congestion. Denies any fever and chills, denies any recent travel, encounter who have been traveling. Appears to be under the influence of unknown substance. Denies abdominal pain, nausea vomiting, headache and dizziness. Vital signs are within normal limits. Has not taken medication for symptom relief. Denies any chest pain, shortness of breath, palpitation, headache and dizziness. COVID-19 risk:Travel to affect: No Has patient experienced dempsey: No Coronavirus symptoms experienc: Cough, Flu-Like Symptoms Allergies: Coded Allergies: IBUPROFEN (Verified Allergy, Unknown, 12/05/16) TRAMADOL (Unverified Allergy, Unknown, 08/25/14) Patient History Past Medical History: see triage record Past Surgical History: none Pertinent Family History: none Last Menstrual Period: na Now: No Immunizations: UTD Reviewed Nursing Documentation: PMH: Agreed; PSxH: Agreed Nursing Documentation-PMH Past Medical History: No History, Except For Hx Cardiac Problems: Yes Hx Hypertension: Yes Hx COPD: Yes Hx Cancer: Yes Hx Gastrointestinal Problems: Yes - CHRONS DISEASE Hx Neurological Problems: Yes Hx Cerebrovascular Accident: Yes - Stroke x2 in 2017 Hx Dizziness: Yes Review of Systems All Other Systems: negative except mentioned in HPI Physical Exam Vital Signs Date Time Temp Pulse Resp B/P (MAP) Pulse Ox O2 Delivery O2 Flow Rate FiO2 05/28/19 12:37 98.1 96 20 158/92 (114) 97 Sp02 EP Interpretation: reviewed, normal General Appearance: no apparent distress, alert, GCS 15, non-toxic Head: normocephalic, atraumatic Eyes: bilateral eye normal inspection, bilateral eye PERRL ENT: hearing grossly normal, normal pharynx, no angioedema, normal voice Neck: full range of motion, supple, no meningismus, no carotid bruits, supple/ symm/no masses Respiratory: chest non-tender, lungs clear, normal breath sounds, no rhonchi, no respiratory distress, no retraction, no accessory muscle use, no wheezing, speaking full sentences Cardiovascular #1: regular rate, rhythm, no edema, no murmur, normal capillary refill Gastrointestinal: normal bowel sounds, non tender, soft, non-distended, no guarding, no rebound Rectal: deferred Genitourinary: no CVA tenderness Musculoskeletal: back normal, normal range of motion, digits/nails normal, no calf tenderness, pelvis stable Neurologic: alert, motor strength/tone normal, oriented x3, sensory intact, responsive, speech normal Psychiatric: judgement/insight normal, memory normal, mood/affect normal, no suicidal/homicidal ideation Skin: no rash Lymphatic: no adenopathy Medical Decision Making PA Attestation All my diagnosis and treatment plans were reviewed ad discussed with my supervising physician Dr. Templeton Diagnostic Impression: Primary Impression: Pneumonitis ER Course 69-year-old female who reports has no significant past medical history from Street here complaining of 2 weeks of cough and congestion. Denies any fever and chills, denies any recent travel, encounter who have been traveling. Appears to be under the influence of unknown substance. Denies abdominal pain, nausea vomiting, headache and dizziness. Vital signs are within normal limits. Has not taken medication for symptom relief. Denies any chest pain, shortness of breath, palpitation, headache and dizziness. Ddx considered but are not limited to: bronchitis, PNA, URI viral, bacterial bronchitis, pneumonitis Vital signs: are WNL, pt. is afebrile H&PE are most consistent with: Pneumonitis ORDERS: Chest x-ray, azithromycin, guaifenesin, prednisone, albuterol inhaler ED INTERVENTIONS: None required at this time. DISCHARGE: At this time pt. is stable for d/c to home. Will provide printed patient care instructions, and any necessary prescriptions. Care plan and follow up instructions have been discussed with the patient prior to discharge. Patient take medication as directed, follow-up primary care provider, increase oral hydration, if worsening symptoms return to emergency room. At this time no further evaluation needed patient has not have any symptoms at this time, is afebrile without taking medication, and denies any recent travel. Chest X-Ray Diagnostic Results Chest X-Ray Diagnostic Results : Chest X-Ray Ordered: Yes # of Views/Limited/Complete: 1 View Indication: Other - Cough EP Interpretation: Yes SHELLY Xray: Interpretation reviewed, by supervising MD, and agrees with findings. Interpretation: no consolidation, no effusion, no pneumothorax Impression: No acute disease Electronically Signed by: Hawa Emerson PA-C Last Vital Signs Date Time Temp Pulse Resp B/P (MAP) Pulse Ox O2 Delivery O2 Flow Rate FiO2 05/28/19 12:44 98.1 95 20 158/92 97 Disposition: HOME, SELF-CARE Condition: Stable Scripts Guaifenesin* (GUAIFENESIN*) 100 Mg/5 Ml Liquid 15 ML ORAL Q6H, #120 ML 0 Refills Prov: Hawa Barnett 05/28/19 Prednisone* (PREDNISONE*) 20 Mg Tablet 40 MG ORAL DAILY for 5 Days, #10 TAB Prov: Hawa Barnett 05/28/19 Albuterol Sulfate (VENTOLIN HFA) 18 Gm Hfa.aer.ad 2 PUFFS INH EVERY 6 HOURS, #18 GM 0 Refills Prov: Hawa Barnett 05/28/19 Amoxicillin/Potassium Clav 875-125* (AUGMENTIN 875-125 TABLET*) 1 Each Tablet 1 TAB ORAL TWICE A DAY for 10 Days, #20 TAB Prov: Hawa Barnett 05/28/19 Patient Instructions: Pneumonitis Additional Instructions: Take medication as directed, increase oral hydration, if worsening symptoms return to the emergency room Hawa Barnett May 28, 2019 13:42
[2019-05-28] MEDS ORDERED: PREDNISONE20 MG ORAL (13:44)
[2019-05-28] MEDS ORDERED: VENTOLIN HFA18 GM INH (13:44)
[2019-05-28] MEDS ORDERED: AUGMENTIN 875-1 EAC1 ORAL (13:44)
[2019-05-28] MEDS ORDERED: GUAIFENESI100 MG/5 M ORAL (13:44)
[2019-05-28 14:00] VITALS: BP 158/92
--- NOTE | 2019-05-28 14:00 | NUR ---
ER DISCHARGE NOTE: Patient is cleared to be discharged per ERMD, pt is aox4, on room air, with stable vital signs. pt was given dc and prescription instructions, pt was able to verbalize understanding, pt is able to ambulate with steady gait. pt took all belongings.
--- NOTE | 2019-05-28 15:23 | Diagnostic Imaging Report ---
Indication: Cough Technique: One view of the chest Comparison: 05/30/2017 Findings: There is evidence of a retrocardiac hiatal hernia. There may be some patchy infiltrate at the right lung base. Lungs pleural spaces are otherwise clear. The heart is upper limits normal in size. The aorta is tortuous ectatic and calcified. Impression: Possible patchy right basilar infiltrate and chronic and clinical findings. Suspect hiatal hernia
== END 2019-05-28 14:00 | disposition home or self-care (01) ==
LOC: EMR 13:50
DX: J18.9 Pneumonia, unspecified organism (principal); I10 Essential (primary) hypertension; J44.9 Chronic obstructive pulmonary disease, unspecified; Z88.6 Allergy status to analgesic agent; K50.90 Crohn's disease, unspecified, without complications; Z86.73 Personal history of transient ischemic attack (TIA), and cerebral infarction without residual deficits
CPT/HCPCS: 71045; 99283

== ENCOUNTER 2019-11-26 02:32 | Emergency (ER) | payer BC, MEDICAID ==
[~2019-11-26] VITALS: Ht 170.2 cm; Wt 54.4 kg
[~2019-11-26 02:32] MED LIST changes: +AUGMENTIN 875-1 EAC1 ORAL; +GUAIFENESI100 MG/5 M ORAL; +PREDNISONE20 MG ORAL; +VENTOLIN HFA18 GM INH
[2019-11-26 02:57] VITALS: BP 159/98
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
[2019-11-26] MEDS ORDERED: [UNRECOGNIZED DRUG - SUPPLY] (05:16)
[2019-11-26] MEDS ORDERED: NORCO 5-325 TA1 EAC1 ORAL (05:16)
[2019-11-26] MEDS ORDERED: HYDROcodone/Acetamin 5/325 tab ONE (05:29)
[2019-11-26] MEDS ORDERED: HYDROcodone/Acetamin 5/325 tab ORAL ONE (05:30)
[2019-11-26 05:45] VITALS: BP 133/85
== END 2019-11-26 05:45 | disposition home or self-care (01) ==
LOC: EMR 03:25
DX: S02.2XXA Fracture of nasal bones, initial encounter for closed fracture (principal); S22.31XA Fracture of one rib, right side, initial encounter for closed fracture; T14.8XXA Other injury of unspecified body region, initial encounter; K50.90 Crohn's disease, unspecified, without complications; I10 Essential (primary) hypertension; J44.9 Chronic obstructive pulmonary disease, unspecified; Y04.2XXA Assault by strike against or bumped into by another person, initial encounter; Y93.9 Activity, unspecified; Y92.9 Unspecified place or not applicable; Z85.07 Personal history of malignant neoplasm of pancreas; Z86.73 Personal history of transient ischemic attack (TIA), and cerebral infarction without residual deficits; Z88.5 Allergy status to narcotic agent; Z88.6 Allergy status to analgesic agent
CPT/HCPCS: 70450; 70486; 71250; 99284

== ENCOUNTER 2020-01-14 18:51 | Emergency (ER) | payer OTHER, MEDICAID ==
[~2020-01-14] VITALS: Ht 170.2 cm; Wt 54.4 kg
[~2020-01-14 18:51] MED LIST changes: +[UNRECOGNIZED DRUG - SUPPLY]
[2020-01-14 19:06] VITALS: BP 153/105
[2020-01-14] MEDS ORDERED: HYDROcodone/Acetamin 5/325 tab ORAL ONE (19:15)
[2020-01-14] MEDS ORDERED: NORCO 5-325 TA1 EAC1 ORAL (19:19)
[2020-01-14] MEDS ORDERED: AUGMENTIN 875-1 EAC1 ORAL (19:19)
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
[2020-01-14 19:28] VITALS: BP 148/92
== END 2020-01-14 19:28 | disposition home or self-care (01) ==
LOC: EMR 19:15
DX: K08.89 Other specified disorders of teeth and supporting structures (principal); I10 Essential (primary) hypertension; J44.9 Chronic obstructive pulmonary disease, unspecified; K50.90 Crohn's disease, unspecified, without complications; Z86.73 Personal history of transient ischemic attack (TIA), and cerebral infarction without residual deficits; Z85.07 Personal history of malignant neoplasm of pancreas; Z88.5 Allergy status to narcotic agent; Z88.6 Allergy status to analgesic agent
CPT/HCPCS: 99282

== ENCOUNTER 2020-02-05 18:25 | Emergency (ER) | payer OTHER, MEDICAID ==
[~2020-02-05] VITALS: Ht 170.2 cm; Wt 56.2 kg
--- NOTE | 2020-02-05 18:40 | NUR ---
ED Nurse Note: Pt ambulated to ED from home d/t upper toothache that has been going on for a week. Pt is AOx4, calm and cooperative to care, VSS, on RA, afebrile on triage. Pt relates pain extending to her R ear. Pt denies any hearing difficulties.
[2020-02-05 18:46] VITALS: BP 185/96
--- NOTE | 2020-02-05 19:05 | Emergency Room Report ---
History of Present Illness General Chief Complaint: Toothache Source: Patient Present Illness HPI 69-year-old female with history of chronic pain who has been here multiple times for either dental pain or chronic pain management here complaining of 1 week of toothache reporting that has not yet established a dentist to follow-up with. Patient reports that he cannot take ibuprofen, tramadol, and is allergic to Tylenol however there is an extensive cures history with multiple prescriptions for hydrocodone from different providers. Patient reports that she does not have established pain management and has not had one since 2 years ago. Patient reports that she is allergic to regular Tylenol however can take either Tylenol with codeine or hydrocodone. Also reports that once some strong cough syrup for her chronic cough. Denies chest pain, shortness of breath, headache and dizziness. Allergies: Coded Allergies: IBUPROFEN (Verified Allergy, Unknown, 12/05/16) TRAMADOL (Unverified Allergy, Unknown, 08/25/14) COVID-19 Screening Contact w/high risk pt: No Experienced COVID-19 symptoms?: No COVID-19 symptoms experienced: Cough, Flu-Like Symptoms COVID-19 Testing performed CAR LUBRICATOR: No Patient History Past Medical History: see triage record Past Surgical History: none Pertinent Family History: none Now: No Reviewed Nursing Documentation: PMH: Agreed; PSxH: Agreed Nursing Documentation-PMH Past Medical History: No History, Except For Hx Cardiac Problems: Yes Hx Hypertension: Yes Hx COPD: Yes Hx Cancer: Yes Hx Gastrointestinal Problems: Yes - CHRONS DISEASE Hx Neurological Problems: Yes Hx Cerebrovascular Accident: Yes - Stroke x2 in 2017 Hx Dizziness: Yes Review of Systems All Other Systems: negative except mentioned in HPI Physical Exam Vital Signs Date Time Temp Pulse Resp B/P (MAP) Pulse Ox O2 Delivery O2 Flow Rate FiO2 02/05/20 18:36 98.1 85 17 185/96 (125) 99 Room Air Sp02 EP Interpretation: reviewed, normal General Appearance: no apparent distress, alert, GCS 15, non-toxic Head: normocephalic, atraumatic Eyes: bilateral eye normal inspection, bilateral eye PERRL ENT: hearing grossly normal, normal pharynx, no angioedema, normal voice, other - Missing front teeth Neck: full range of motion, supple/symm/no masses Respiratory: chest non-tender, lungs clear, normal breath sounds, speaking full sentences Cardiovascular #1: regular rate, rhythm, no edema Gastrointestinal: soft Rectal: deferred Genitourinary: no CVA tenderness Musculoskeletal: back normal Neurologic: alert, motor strength/tone normal, oriented x3, sensory intact, responsive, speech normal Psychiatric: judgement/insight normal, memory normal, mood/affect normal, no suicidal/homicidal ideation Skin: no rash Lymphatic: no adenopathy Medical Decision Making PA Attestation ALL Diagnosis and treatment plan reviewed and discussed with my supervising physician Dr. Montoya Diagnostic Impression: Primary Impression: Toothache Additional Impressions: Chronic pain Chronic cough ER Course 69-year-old female with history of chronic pain who has been here multiple times for either dental pain or chronic pain management here complaining of 1 week of toothache reporting that has not yet established a dentist to follow-up with. Patient reports that he cannot take ibuprofen, tramadol, and is allergic to Tylenol however there is an extensive cures history with multiple prescriptions for hydrocodone from different providers. Patient reports that she does not have established pain management and has not had one since 2 years ago. Patient reports that she is allergic to regular Tylenol however can take either Tylenol with codeine or hydrocodone. Also reports that once some strong cough syrup for her chronic cough. Denies chest pain, shortness of breath, headache and dizziness. Ddx considered but are not limited to: Dental abscess, dental pain, pharyngitis Vital signs: are WNL, pt. is afebrile H&PE are most consistent with: Dental pain, chronic pain, drug-seeking behavior, chronic cough ORDERS: Prednisone, Tylenol, clindamycin ED INTERVENTIONS: None required at this time. DISCHARGE: At this time pt. is stable for d/c to home. Will provide printed patient care instructions, and any necessary prescriptions. Care plan and follow up instructions have been discussed with the patient prior to discharge. Gave a list of dental offices patient to follow-up with, also advised patient follow-up with pain management for chronic pain at this time repeated prescription of [place] is not advised patient needs to have established pain management. If worsening symptoms return to the emergency room Last Vital Signs Date Time Temp Pulse Resp B/P (MAP) Pulse Ox O2 Delivery O2 Flow Rate FiO2 02/05/20 18:46 98.1 17 185/96 99 Room Air 02/05/20 18:36 85 Disposition: HOME, SELF-CARE Condition: Stable Scripts Guaifenesin* (GUAIFENESIN*) 100 Mg/5 Ml Liquid 5 ML ORAL Q6H PRN for For Cough, #120 ML 0 Refills Prov: Hawa Barnett 02/05/20 Acetaminophen* (TYLENOL EXTRA STRENGTH*) 500 Mg Tablet 500 MG ORAL Q8H PRN for Prn Headache/Temp > 101, #30 TAB 0 Refills Prov: Hawa Barnett 02/05/20 Prednisone* (PREDNISONE*) 20 Mg Tablet 40 MG ORAL DAILY for 5 Days, #10 TAB Prov: Hawa Barnett 02/05/20 Clindamycin Hcl* (CLINDAMYCIN HCL*) 150 Mg Capsule 300 MG ORAL FOUR TIMES A DAY for 7 Days, #28 CAP Prov: Hawa Barnett 02/05/20 Referrals: NON PHYSICIAN (PCP) Patient Instructions: Dental Pain Additional Instructions: For chronic pain and prescription for narcotics and continuation of narcotics need to have established pain management there are not advised at this time. He also need to follow-up with a dentist. If worsening symptoms return to the emergency room Hawa Barnett Feb 05, 2020 19:05
[2020-02-05] MEDS ORDERED: CLINDAMYCIN HC150 MG ORAL (19:07)
[2020-02-05] MEDS ORDERED: PREDNISONE20 MG ORAL (19:07)
[2020-02-05] MEDS ORDERED: TYLENOL EXTRA500 MG ORAL (19:07)
[2020-02-05] MEDS ORDERED: GUAIFENESI100 MG/5 M ORAL (19:15)
[2020-02-05 19:20] VITALS: BP 144/90
--- NOTE | 2020-02-05 19:30 | NUR ---
ER DISCHARGE NOTE: Patient is cleared to be discharged per ERMD, pt is aox4, on room air, with stable vital signs. pt was given dc and prescription instructions, pt was able to verbalize understanding, pt id band removed without complications. pt is able to ambulate with steady gait. pt took all belongings.
== END 2020-02-05 19:30 | disposition home or self-care (01) ==
LOC: EMR 19:00
DX: K08.89 Other specified disorders of teeth and supporting structures (principal); G89.29 Other chronic pain; R05 Cough; J44.9 Chronic obstructive pulmonary disease, unspecified; I11.9 Hypertensive heart disease without heart failure; K50.90 Crohn's disease, unspecified, without complications; Z86.73 Personal history of transient ischemic attack (TIA), and cerebral infarction without residual deficits; Z85.9 Personal history of malignant neoplasm, unspecified; Z88.5 Allergy status to narcotic agent; Z88.6 Allergy status to analgesic agent
CPT/HCPCS: 99282